=== PATIENT | female | born 1960 | race Caucasian/White ===

== ENCOUNTER → 2019-08-19 09:48 | Outpatient (CLI) | payer BC, SELFPAY ==
--- NOTE | ~2019-08-19 | MM_ITS ---
EXAMINATION: MM screening elly BI w ara HISTORY: Screening mammogram TECHNIQUE: Craniocaudal and mediolateral oblique 3-D tomosynthesis images were obtained and synthetic 2-D images were generated. CAD analysis was submitted and interpreted. COMPARISON: Comparison to multiple prior studies sequentially, with oldest reviewed study dated 2012. BREAST PARENCHYMAL COMPOSITION: There are scattered areas of fibroglandular density. FINDINGS: There are benign calcifications. There is no evidence of suspicious mass, calcification, or architectural distortion to suggest malignancy in either breast. There has been no suspicious interv al change. IMPRESSION: 1. No mammographic evidence of malignancy. 2. Recommend routine screening mammography in one year. BI-RADS Category 2: Benign finding(s). Reviewed, dictated and finalized at location A. 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
== END ==
PROVIDERS: Visit Provider Physician Assistant
DX: Z12.31 Encounter for screening mammogram for malignant neoplasm of breast (principal)
CPT/HCPCS: 77063; 77067

== ENCOUNTER → 2020-10-25 07:02 | Outpatient (CLI) | payer BC, SELFPAY ==
--- NOTE | ~2020-10-25 | MM_ITS ---
EXAMINATION: MM screening elly BI w ara HISTORY: Screening mammogram TECHNIQUE: Craniocaudal and mediolateral oblique 3-D tomosynthesis images were obtained and synthetic 2-D images were generated. CAD analysis was submitted and interpreted. COMPARISON: 08/19/2019, 02/22/2018, 04/06/2016 bilateral digital screening mammogram examinations BREAST PARENCHYMAL COMPOSITION: There are scattered areas of fibroglandular density. FINDINGS: There is no evidence of suspicious mass, calcification, or architectural distortion to sugg est malignancy in either breast. There has been no suspicious interval change. IMPRESSION: 1. No mammographic evidence of malignancy. 2. Recommend routine screening mammography in one year. BI-RADS Category 1: Negative Reviewed, dictated and finalized at location A.
== END ==
PROVIDERS: PCP Family Medicine; Visit Provider Family Medicine
DX: Z12.31 Encounter for screening mammogram for malignant neoplasm of breast (principal)
CPT/HCPCS: 77063; 77067

== ENCOUNTER 2022-01-17 14:04 | Inpatient (IN) | payer BC, SELFPAY ==
--- NOTE | ~2022-01-17 | CT_ITS ---
EXAMINATION: CT LE RT wo con DATE: 01/27/2022 10:32 INDICATION: Right lower leg cellulitis and erythema and swelling. TECHNIQUE: Computed tomography (CT) of the right lower limb from the knee to the foot was performed w ithout intravenous contrast. Automated exposure control and iterative reconstruction technique were e mployed. The dose-length product was 996.12 mGy-cm. COMPARISON: Right tibia and fibula radiographs 01/21/2022 FINDINGS: Bone alignment is normal. No fracture. Right knee demonstrates moderate osteoarthritis of m edial compartment and mild osteoarthritis of lateral and patellofemoral compartments. There is mild p olyarticular osteoarthritis in the foot. There are enthesophytes at the posterior and plantar aspects of calcaneal tuberosity. There is subcutaneous edema in the lower leg and foot. IMPRESSION: 1. No abscess. 2. Polyarticular osteoarthritis. Reviewed, dictated and finalized at location A.
--- NOTE | ~2022-01-17 | XR_ITS ---
EXAMINATION: XR tibia fibula RT 2V DATE: 01/21/2022 08:52 INDICATION: Right lower leg swelling and erythema TECHNIQUE: AP and lateral views of the right lower leg were obtained on overlapping proximal and dist al images. COMPARISON: 01/14/2022 FINDINGS: Bone alignment is normal. No fracture. Mild tricompartmental osteoarthritis at the right knee. No cor tical erosions or periosteal reaction. Moderate-sized Achilles and plantar calcaneal spurs. Diffuse s oft tissue swelling with subcutaneous edema throughout the right lower leg beginning about the knee a nd extending as ankle over the dorsum of the foot. No soft tissue gas or radiopaque foreign bodies. IMPRESSION: 1. Unchanged nonspecific diffuse soft tissue swelling with no acute osseous abnormality or soft tissu e gas. Reviewed, dictated and finalized at location A. IMPRESSION: 1. Unchanged nonspecific diffuse soft tissue swelling with no acute osseous abn ormality or soft tissue gas.
--- NOTE | ~2022-01-17 | XR_ITS ---
EXAM: XR foot RT 2V DATE: 01/21/2022 13:50 HISTORY: swelling, right foot, pain, cellulitis . COMPARISON: None available. FINDINGS: Normal mineralization. No fracture or dislocation. No lytic or blastic lesion. Joint space s are maintained. Plantar and Achilles enthesopathy. No erosion or periosteal change. Diffuse soft ti ssue swelling. IMPRESSION: No acute osseous finding in the right foot. Reviewed, dictated and finalized at location K.
--- NOTE | ~2022-01-17 | US_ITS ---
EXAMINATION: US venous doppler LE RT DATE: 01/17/2022 14:50 INDICATION: swelling, erythema . TECHNIQUE: Grayscale images without and with compression and Doppler images of the right lower extrem ity veins were obtained. COMPARISON: None FINDINGS: The right common femoral vein, profunda (deep) femoral vein, femoral vein, popliteal vein, peroneal v ein, posterior tibial veins, gastrocnemius vein, and greater saphenous vein are patent. Subcutaneous edema present in the area of erythema. IMPRESSION: 1. Patent right lower extremity veins. No evidence of deep venous thrombosis. Reviewed, dictated and finalized at location K.
--- NOTE | ~2022-01-17 | XR_ITS ---
EXAMINATION: XR tibia fibula RT 2V DATE: 01/18/2022 11:35 INDICATION: Swelling and erythema at the distal right lower leg TECHNIQUE: Anteroposterior and lateral views of the right lower leg were obtained. COMPARISON: None. FINDINGS: Alignment is normal. No fracture. Joint spaces are relatively preserved although joint space narrowin g can be underestimated on nonweightbearing imaging. There are small marginal ossified to the inferio r pole of the patella and tiny marginal osteophytes at the medial and lateral compartments as well as at the ankle. No cortical erosions or periosteal reaction. Soft tissue swelling throughout the right lower leg and about the ankle with diffuse subcutaneous edema. No soft tissue gas or radiopaque fore ign bodies. Moderate-sized Achilles and plantar calcaneal spurs. No evident knee or ankle joint effus ion. IMPRESSION: 1. Nonspecific diffuse soft tissue swelling with no acute osseous abnormality, soft tissue gas or rad iopaque foreign body. Reviewed, dictated and finalized at location A. IMPRESSION: 1. Nonspecific diffuse soft tissue swelling with no acute osseous abnormality, soft tissue gas or radiopaque foreign body.
[2022-01-17 14:05] VITALS: BP 145/89; PULSE 87; RESP 16; TEMP 36.1; O2SAT 98
--- NOTE | 2022-01-17 14:20 | ED.SKABFB ---
HPI - Skin/Abscess/Foreign Bdy General Chief complaint: Skin/Abscess/Foreign Body <Miriam Morris PA-C - Last Filed: 01/17/22 19:17> Stated complaint: RLE cellulitis <MIESHA Bryant Last Filed: 01/17/22 19:17> Time Seen by Provider: 01/17/22 14:12 <MIESHA Bryant Last Filed: 01/17/22 19:17> History of Present Illness HPI narrative: Patient is a 61-year-old female here with a history of RA here for evaluation of right lower extremity swelling and pain for the past day and a half. Patient states that her foot has been red for several days, but the pain and swelling began yesterday. She went to [facility] emergency department, and was given oral antibiotics and sent home, told to come back if he gets worse. Unfortunately, the redness and swelling has spread proximally up her calf, behind her knee despite compliance with the cefpodoxime she was prescribed. Denies fevers, chills, nausea, vomiting. <MIESHA Bryant Last Filed: 01/17/22 19:17> Related Data Home medications: Home Medications Medication Instructions Recorded Confirmed etanercept 25 mg/0.5 mL (0.5 mL) 25 mg subcut WEEKLY 07/18/19 02/13/21 subcutaneous syringe (Enbrel) <MIESHA Bryant Last Filed: 01/17/22 19:17> Allergies/Adverse reactions: Allergies Allergy/AdvReac Type Severity Reaction Status Date / Time Penicillins Allergy Unknown Unknown Verified 01/17/22 14:07 <MIESHA Bryant Last Filed: 01/17/22 19:17> Review of Systems Review of Systems: Gen: Denies fevers or chills Eyes: Denies eye pain or visual change ENT: Denies congestion Respiratory: Denies shortness of breath or cough CV: Denies chest pain or palpitations GI: Denies abdominal pain nausea, emesis or diarrhea denies burning, urgency, frequency or hematuria Musculoskeletal: Denies back pain or muscle pain Neuro: Denies numbness, tingling, weakness or focal weakness Skin: Reports redness and swelling to right lower extremity Except as documented, all other systems reviewed and negative <Miriam Morris PA-C - Last Filed: 01/17/22 19:17> [facility] Past Medical History Medical History: Medical History Eczema Rheumatoid arthritis Tinea <Miriam Morris PA-C - Last Filed: 01/17/22 19:17> Social History Social History: Social History Alcohol intake: current Drinks per week: 10 <Miriam Morris PA-C - Last Filed: 01/17/22 19:17> Exam Narrative: APPEARANCE: Well appearing, no pain in distress, well-nourished. Head: Normocephalic and atraumatic. EYES: PERRLA/EOMI, conjunctivae clear NOSE: No nasal drainage EARS: External ear normal in appearance THROAT: Oropharynx is clear. Mucous membranes are moist. NECK: Supple. No adenopathy, no masses. RESPIRATORY: Airway patent, respirations nonlabored. Clear to auscultation bilaterally, no rales, rhonchi, wheezing. CARDIOVASCULAR: Doppler signals to bilateral dp/pt. Regular rate and rhythm without murmurs, rubs, or gallops. ABDOMINAL: Normoactive bowel sounds. Soft, nontender, nondistended. No rebound tenderness or guarding. MUSCULOSKELETAL: Extremities are warm and well-perfused. Moves all extremities well. NEURO: Normal speech. No focal neurologic deficits. SKIN: Large area of erythema and swelling to right lower extremity extending from foot proximally up calf. PSYCHIATRIC: Normal affect/mood. <Miriam Morris PA-C - Last Filed: 01/17/22 19:17> Course SECURITY TECH/PA Physician Supervision For this patient encounter, I reviewed the SECURITY TECH or PA documentation, treatment plan, and medical decision making; <Naila Herrera MD - Last Filed: 01/17/22 19:18> Vital Signs Vital signs: Vital Signs Temperature 97 F L 01/17/22 14:05 Pulse Rate 87 01/17/22 14:05 Respi
[2022-01-17 14:57] LABS: Basophils Percent Auto 0.2 % (0.2-1.2); Hematocrit 39.1 % (37.0-47.0); Hemoglobin 12.8 g/dL (12.0-15.0); Immature Granulocyte Absolute 0.11 K/mm3 (0.00-0.031); Immature Granulocyte Percent A 0.6 % (0-0.5); Lymphocytes Absolute Auto 0.91 K/mm3 (0.9-3.2); Lymphocytes Percent Auto 5.3 % (18.3-44.2); Mean Corpuscular HGB Conc 32.7 g/dl (32-36); Mean Corpuscular Volume 88.5 fl (80-100); Mean Platelet Volume 11.3 fl (7.4-10.4); Monocytes Absolute Auto 0.6 K/mm3 (0.1-0.6); Monocytes Percent Auto 3.5 % (2.6-8.5); Neutrophils Absolute Auto 15.5 K/mm3 (1.3-6.7); Neutrophils Percent Auto 90.4 % (45.5-73.1); Platelet Count Result 213 k/mm3 (150-375); Red Blood Count 4.42 M/mm3 (4.2-5.4); Red Cell Distribution Width 12.9 % (11.5-14.5); White Blood Count 17.1 K/mm3 (4.5-10.0)
--- NOTE | 2022-01-17 14:59 | PC.NURSE ---
right pedal pulse doppled and marked
[2022-01-17 15:08] LABS: Lactic Acid Reflex 1.1 mmol/L (0.7-2.0)
[2022-01-17 15:09] LABS: Alanine Aminotransferase 20 U/L (6-35); Albumin Level 3.8 g/dL (3.5-5.1); Alkaline Phosphatase 72 U/L (38-126); Anion Gap 4 mmol/L (8-16); Aspartate Amino Transferase 19 U/L (14-36); Bilirubin,Total 0.7 mg/dL (0.2-1.3); Blood Urea Nitrogen 20 mg/dL (7-17); Calcium 9.5 mg/dL (8.4-10.2); Carbon Dioxide 27 mmol/L (22-30); Chloride 106 mmol/L (98-107); Estimated CRCL calculation 71 ml/min; Estimated Glomerular Filt Rate > 60; Glucose 156 mg/dL (65-110); Potassium 3.9 mmol/L (3.4-5.0); Sodium 137 mmol/L (137-145)
[2022-01-17 16:45] LABS: SARS-CoV-2 RNA PCR Negative
--- NOTE | 2022-01-17 17:43 | PM.IMHP ---
H&P: HPI History of Present Illness Date/Time: 01/17/22 17:00 Chief Complaint: Right lower extremity cellulitis Narrative: This pleasant 61-year-old female patient who has significant past medical history of rheumatoid arthritis on chronic Enbrel therapy, current psoriasis in fungal infection to bilateral lower extremities presents to the emergency room independently ambulatory with complaints of having right lower extremity cellulitis that has spread from her foot to her calf over the course of the past day and half. Patient endorses that yesterday she had a left knee arthrocentesis and subsequent steroid injection performed at [facility] and she had no symptoms of any leg swelling, erythema or pain prior to. She returned home and upon arriving home later in the day she noted that her right leg seemed to be swollen, and she had a reddened area present that was painful. She return to the emergency room at [facility] yesterday was diagnosed with right lower extremity cellulitis was given antibiotics of cefpodoxime to take at home and discharge. Patient has taken a total of 2 doses of the cefpodoxime, however notes that the swelling and the erythema has spread of from her ankle down onto her foot as well as up to the midcalf despite the medication. Patient endorses that she has a small reddened area in the center of the cellulitic area that is also being treated with terbinafine cream currently as patient has a small fungal infection. It is noted also that on her right foot she has an area of psoriasis and eczema. She has noted that she has been scratching the extremity some lately. She denies any chest pain, dyspnea, fevers, flu-like illness or recent ill contacts. She rates her pain a 9/10. Upon arrival to the emergency room workup was performed. Venous Dopplers were negative for any DVT in the affected extremity, however her white blood cell count is noted to be 17.1 with absolute neutrophils of 15.5, and her metabolic panel is normal. Lactic acid is normal at 1.1. Will obtain a procalcitonin and CRP. Blood cultures x2 are pending. Patient was given a dose Ancef in the ED. it is secondary to patient having a compromised immune system will add vancomycin pending results of blood cultures. Patient has been admitted to hospitalist service at this time for further workup, treatment and management. Review of Systems Review of Systems: All systems reviewed & are unremarkable except as noted in HPI and below PMFSH Past Medical History Medical History Eczema Rheumatoid arthritis Tinea Social History Social History Alcohol intake: current Drinks per week: 10 Meds Home Medications and Allergies Home Medications Medication Instructions Recorded Confirmed Type etanercept 25 mg/0.5 mL (0.5 mL) 25 mg subcut WEEKLY 07/18/19 02/13/21 History subcutaneous syringe (Enbrel) leflunomide 20 mg tablet 20 mg PO DAILY #90 tabs 12/20/19 02/13/21 Rx lysine 1,000 mg tablet 1,000 mg PO DAILY #90 tabs 12/20/19 02/13/21 Rx triamcinolone acetonide 0.1 % 1 applic topical BID #80 grams 07/09/20 02/13/21 Rx topical cream terbinafine HCl 250 mg tablet 250 mg PO DAILY #84 tabs 12/10/21 12/10/21 Rx triamterene 37.5 0.5 tablet PO QAM #30 tabs 12/10/21 12/10/21 Rx mg-hydrochlorothiazide 25 mg tablet (Maxzide-25mg) Allergies Allergy/AdvReac Type Severity Reaction Status Date / Time Penicillins Allergy Unknown Unknown Verified 01/17/22 14:07 Vital Signs Vital Signs - 24 hr 01/17/22 14:05 Temperature 97 F L Pulse Rate 87 Respiratory Rate 16 Blood Pressure 145/89 H Pulse Oximetry 98 H&P: Results Labs Labs: Short CBC 01/17/22 Range/Units 14:51 WBC 17.1 H (4.5-10.0) K/mm3 Hgb 12.8 (12.0-15.0) g/dL Hct 39.1 (37.0-47.0) % Plt Count 213 (150-375) k/mm3 BMP 01/17/22
[2022-01-17 17:54] VITALS: BP 130/82; PULSE 85; RESP 16; O2SAT 98
[2022-01-17 19:48] LABS: Procalcitonin 0.3 ng/mL
[2022-01-17 20:09] LABS: CRP 32.3 mg/dL (<1.0)
[2022-01-17] MEDS: HYDROcodone/acetaminophen (*CRX) 5-325 MG TABLET 1 TAB PO (20:33)
[2022-01-17 21:15] VITALS: BP 134/57; PULSE 82; RESP 16; TEMP 36.5; O2SAT 95
[2022-01-17 22:00] VITALS: BMI 38.7
[2022-01-18 04:53] VITALS: BP 126/48; PULSE 83; RESP 16; TEMP 36.6; O2SAT 98
[2022-01-18 05:12] LABS: Basophils Percent Auto 0.3 % (0.2-1.2); Eosinophils Percent Auto 0.1 % (0-4.4); Hematocrit 39.8 % (37.0-47.0); Hemoglobin 12.6 g/dL (12.0-15.0); Immature Granulocyte Absolute 0.08 K/mm3 (0.00-0.031); Immature Granulocyte Percent A 0.5 % (0-0.5); Lymphocytes Absolute Auto 1.01 K/mm3 (0.9-3.2); Lymphocytes Percent Auto 6.5 % (18.3-44.2); Mean Corpuscular HGB Conc 31.7 g/dl (32-36); Mean Corpuscular Hemoglobin 28.6 pg (26-34); Mean Corpuscular Volume 90.5 fl (80-100); Mean Platelet Volume 11.4 fl (7.4-10.4); Monocytes Absolute Auto 0.9 K/mm3 (0.1-0.6); Monocytes Percent Auto 6.1 % (2.6-8.5); Neutrophils Absolute Auto 13.4 K/mm3 (1.3-6.7); Neutrophils Percent Auto 86.5 % (45.5-73.1); Platelet Count Result 219 k/mm3 (150-375); White Blood Count 15.5 K/mm3 (4.5-10.0)
[2022-01-18 05:27] LABS: Alanine Aminotransferase 17 U/L (6-35); Albumin Level 3.8 g/dL (3.5-5.1); Alkaline Phosphatase 70 U/L (38-126); Anion Gap 9 mmol/L (8-16); Aspartate Amino Transferase 17 U/L (14-36); Bilirubin,Total 0.5 mg/dL (0.2-1.3); Blood Urea Nitrogen 15 mg/dL (7-17); Calcium 9.3 mg/dL (8.4-10.2); Carbon Dioxide 27 mmol/L (22-30); Chloride 102 mmol/L (98-107); Estimated CRCL calculation 81 ml/min; Estimated Glomerular Filt Rate > 60; Glucose 99 mg/dL (65-110); Magnesium 2.1 mg/dL (1.6-2.3); Sodium 138 mmol/L (137-145)
[2022-01-18] MEDS: ENOXAPARIN 40 MG/0.4 ML SYRINGE SUB-Q (08:10)
[2022-01-18] MEDS: HYDROcodone/acetaminophen (*CRX) 5-325 MG TABLET 1 TAB PO ×3 (09:16→23:51)
--- NOTE | 2022-01-18 10:56 | PM.IMPN ---
Progress Note: A&P Assessment and Plan (1) Cellulitis: Qualifiers: Site of cellulitis: extremity Site of cellulitis of extremity: lower extremity Laterality: right Qualified Code(s): L03.115 - Cellulitis of right lower limb Code(s): L03.90 - Cellulitis, unspecified Status: Acute Assessment and Plan: patient given Ancef in the ED. -Continue Ancef, but increase to 2 grams Q8 hours. -Vancomycin IV pharmacy to dose added. Given compromised immune system from Enbrel and leflunomide -Right tib/fib negative for soft tissue gas, foreign body or osseous abnormality. -elevated white blood cell count with elevated absolute neutrophils -lactic acid normal, procalcitonin 0.3, and CRP elevated 32 (may be chronically elevated due to RA). -blood cultures pending. -venous Dopplers negative for DVT. No documented abscess or fluid collection noted. -Worsening symptoms on outpatient cefpodoxime x24 hours. -Continue p.r.n. pain med -p.r.n. antiemetics -monitor labs and vitals -Elevate RLE to help with edema. (2) Lower extremity edema: Code(s): R60.0 - Localized edema Status: Acute Assessment and Plan: -venous Dopplers negative for DVT -most likely secondary to cellulitis -elevate legs in bed -Continue triamterene/hydrochlorothiazide for her chronic edema. Monitor BP on medication. (3) Tinea pedis of both feet: Code(s): B35.3 - Tinea pedis Status: Acute Assessment and Plan: -patient has ordered terbinafine cream for small area on her right lower extremity approximately dime-sized. -Resume oral terbinafine. (4) Eczema: Code(s): L30.9 - Dermatitis, unspecified Status: Acute Assessment and Plan: -patient with steroid shot to the left knee intra-articularly 24 hours prior to admission, however patient also uses steroid cream for eczema and psoriasis noted to bilateral lower extremities. -Verify patient's steroid cream, then resume (5) Rheumatoid arthritis: Code(s): M06.9 - Rheumatoid arthritis, unspecified Status: Chronic Assessment and Plan: -chronic history. Patient doses with Enbrel as well as leflunomide for management. -hold leflunomide d/t acute infection. Plan CODE STATUS: FULL CODE Disposition: home when medically stable. Time Spent With Patient Time with patient: 15 - 25 minutes Subjective Date/time seen: 01/18/22 10:56 Interval history: Patient is a 61 yo female with medical history of RA on DMARDs who presented to the ED for evaluation of RLE cellulitis that failed outpatient antibiotics. She does not think her right leg is improved today. It is still red, swollen and the skin is itching. She is concerned that her toe fungal infection is the contributing. She is also concerned that the steroid injection to her left knee contributed to RLE cellulitis. She denies acute injury, but does have old psoriasis lesions to her right leg. Review of Systems Review of Systems: All systems reviewed & are unremarkable except as noted in HPI and below Exam Narrative: General: No distress. Well-developed adult female sitting up in bed. Non-toxic appearing. No oxygen. Mental Status/Psych: AAOx4. Clear speech. Pleasant and cooperative. Neutral mood and affect. Skin: Fair, warm, dry. RLE and pedal with 3+ edema, hot to touch, moderate erythema superior to malleolus and approximately 4 in from patella. Very tender to palpitation. HEENT: Normocephalic. Sclera non-icteric. Pupils equal and round. Oral mucosa moist. Neck: No JVD. Heart: S1 and S2 regular rate and rhythm. No murmurs, gallops, or rubs auscultated. Chest: Respirations even and unlabored. Lung sounds are clear to auscultation bilaterally. No wheezes, rhonchi, or rales. Abdomen: Soft, round and nontender to palpation. No CVA tenderness.?No guarding. Bowel sounds present in all 4 quadrants. Extremities:? Grossly normal ROM all extremities. Rock
[2022-01-18] MEDS: ceFAZolin 2 GM/D5W 50 ML 2 GM/50 ML BAG IVPB ×2 (14:31→23:39)
[2022-01-18 15:33] VITALS: BP 126/56; PULSE 80; RESP 20; TEMP 36.3; O2SAT 98
[2022-01-18 20:00] VITALS: PULSE 84; RESP 18; O2SAT 97
[2022-01-18 21:40] VITALS: BP 133/61; PULSE 84; RESP 18; TEMP 36.4; O2SAT 97
[2022-01-19] MEDS: ceFAZolin 2 GM/D5W 50 ML 2 GM/50 ML BAG IVPB ×3 (06:12→21:48)
[2022-01-19 06:27] VITALS: BP 130/66; PULSE 89; RESP 20; TEMP 37.5; O2SAT 94
[2022-01-19 07:39] LABS: Basophils Absolute Auto 0.1 K/mm3 (0.0-0.1); Basophils Percent Auto 0.5 % (0.2-1.2); Eosinophils Absolute Auto 0.1 K/mm3 (0-0.3); Eosinophils Percent Auto 0.8 % (0-4.4); Hematocrit 35.8 % (37.0-47.0); Hemoglobin 11.9 g/dL (12.0-15.0); Immature Granulocyte Absolute 0.06 K/mm3 (0.00-0.031); Immature Granulocyte Percent A 0.6 % (0-0.5); Lymphocytes Absolute Auto 0.89 K/mm3 (0.9-3.2); Lymphocytes Percent Auto 8.7 % (18.3-44.2); Mean Corpuscular HGB Conc 33.2 g/dl (32-36); Mean Corpuscular Hemoglobin 29.3 pg (26-34); Mean Corpuscular Volume 88.2 fl (80-100); Mean Platelet Volume 10.6 fl (7.4-10.4); Monocytes Absolute Auto 1.2 K/mm3 (0.1-0.6); Monocytes Percent Auto 11.6 % (2.6-8.5); Neutrophils Percent Auto 77.8 % (45.5-73.1); Platelet Count Result 207 k/mm3 (150-375); Red Blood Count 4.06 M/mm3 (4.2-5.4); Red Cell Distribution Width 12.8 % (11.5-14.5); White Blood Count 10.3 K/mm3 (4.5-10.0)
[2022-01-19 07:59] LABS: Estimated CRCL calculation 93 ml/min; Estimated Glomerular Filt Rate > 60
[2022-01-19 08:05] LABS: Vancomycin Trough 8.9 ug/mL (10.0-20.0)
[2022-01-19] MEDS: ENOXAPARIN 40 MG/0.4 ML SYRINGE SUB-Q (09:27)
[2022-01-19] MEDS: TERBINAFINE HCL 250 MG TABLET PO (09:28)
[2022-01-19] MEDS: TRIAMTERENE 37.5 MG/HCTZ 25 MG (MAXZIDE) TABLET 0.5 TAB PO (09:28)
[2022-01-19 10:23] VITALS: PULSE 82; O2SAT 96
--- NOTE | 2022-01-19 10:30 | PM.IMPN ---
Progress Note: A&P Assessment and Plan (1) Cellulitis: Qualifiers: Laterality: right Site of cellulitis: extremity Site of cellulitis of extremity: lower extremity Qualified Code(s): L03.115 - Cellulitis of right lower limb Code(s): L03.90 - Cellulitis, unspecified Status: Acute Assessment and Plan: patient given Ancef in the ED. -Continue Ancef 2 grams Q8 hours. Antibiotic day 2. -Vancomycin IV pharmacy to dose added. Given compromised immune system from Enbrel and leflunomide will continue for another 24 hours at least. Discussed with ID clinical pharmacist. -Right tib/fib negative for soft tissue gas, foreign body or osseous abnormality. -elevated white blood cell count with elevated absolute neutrophils that is trending down with some clinical improvement. -lactic acid normal, procalcitonin 0.3, and CRP elevated 32 (may be chronically elevated due to RA). -blood cultures negative to date. -venous Dopplers negative for DVT. No documented abscess or fluid collection noted. -Worsening symptoms on outpatient cefpodoxime x24 hours. -Increase hydrocodone/APAP to 7.5/325 mg PO Q4 hours PRN -monitor labs and vitals -Elevate RLE to help with edema. (2) Lower extremity edema: Code(s): R60.0 - Localized edema Status: Acute Assessment and Plan: -venous Dopplers negative for DVT -most likely secondary to cellulitis -elevate legs in bed -Continue triamterene/hydrochlorothiazide for her chronic edema. Monitor BP on medication. (3) Tinea pedis of both feet: Code(s): B35.3 - Tinea pedis Status: Acute Assessment and Plan: -patient has ordered terbinafine cream for small area on her right lower extremity approximately dime-sized. -Resume oral terbinafine. (4) Eczema: Code(s): L30.9 - Dermatitis, unspecified Status: Acute Assessment and Plan: -patient with steroid shot to the left knee intra-articularly 24 hours prior to admission, however patient also uses steroid cream for eczema and psoriasis noted to bilateral lower extremities. -Verify patient's steroid cream, then resume (5) Rheumatoid arthritis: Code(s): M06.9 - Rheumatoid arthritis, unspecified Status: Chronic Assessment and Plan: -chronic history. Patient doses with Enbrel as well as leflunomide for management. -hold leflunomide d/t acute infection. Plan CODE STATUS: FULL CODE Disposition: home when medically stable. Time Spent With Patient Time with patient: 15 - 25 minutes Subjective Date/time seen: 01/19/22 10:30 Interval history: Patient is a 61 yo female with medical history of RA on DMARDs who presented to the ED for evaluation of RLE cellulitis that failed outpatient antibiotics. She still has pain to her right leg, especially with ambulating. The pain medication is minimally helpful. She thinks there is less redness to her foot and ankle, but it is still swollen and red. Review of Systems Review of Systems: All systems reviewed & are unremarkable except as noted in HPI and below Exam Narrative: General: No distress. Non-toxic appearing. No oxygen. Mental Status/Psych: AAOx4. Clear speech. Pleasant and cooperative. Neutral mood and affect. Skin: Fair, warm, dry. RLE and pedal with 3+ edema, hot to touch mid-calf, moderate erythema within marked borders, mild recession from markings. Very tender to palpitation. HEENT: Sclera non-icteric. Pupils equal and round. Oral mucosa moist. Neck: No JVD. Heart: S1 and S2 regular rate and rhythm. No murmurs, gallops, or rubs auscultated. Chest: Respirations even and unlabored. Lung sounds are clear to auscultation bilaterally. No wheezes, rhonchi, or rales. Abdomen: Soft, round and nontender to palpation. Bowel sounds present in all 4 quadrants. Extremities:? Grossly normal ROM all extremities. Dorsalis pedis pulses +2 bilaterally. Neurological: No focal deficits. Obje
[2022-01-19 14:42] VITALS: BP 147/68; PULSE 95; RESP 16; TEMP 36.1; O2SAT 100
[2022-01-19 20:40] VITALS: BP 133/54; PULSE 88; RESP 20; TEMP 36.6; O2SAT 96
[2022-01-20] MEDS: HYDROcodone/acetaminophen (*CRX) 7.5-325 MG TABLET 1 TAB PO ×3 (00:08→21:15)
[2022-01-20 03:44] VITALS: BP 136/70; PULSE 84; RESP 16; TEMP 36.3; O2SAT 93
[2022-01-20 05:31] LABS: Basophils Absolute Auto 0.1 K/mm3 (0.0-0.1); Basophils Percent Auto 0.6 % (0.2-1.2); Eosinophils Absolute Auto 0.2 K/mm3 (0-0.3); Eosinophils Percent Auto 1.7 % (0-4.4); Hematocrit 38.9 % (37.0-47.0); Hemoglobin 12.2 g/dL (12.0-15.0); Immature Granulocyte Absolute 0.04 K/mm3 (0.00-0.031); Immature Granulocyte Percent A 0.4 % (0-0.5); Lymphocytes Absolute Auto 1.06 K/mm3 (0.9-3.2); Lymphocytes Percent Auto 11.8 % (18.3-44.2); Mean Corpuscular HGB Conc 31.4 g/dl (32-36); Mean Corpuscular Hemoglobin 28.1 pg (26-34); Mean Corpuscular Volume 89.6 fl (80-100); Mean Platelet Volume 10.6 fl (7.4-10.4); Monocytes Absolute Auto 1.3 K/mm3 (0.1-0.6); Monocytes Percent Auto 14.7 % (2.6-8.5); Neutrophils Absolute Auto 6.4 K/mm3 (1.3-6.7); Neutrophils Percent Auto 70.8 % (45.5-73.1); Platelet Count Result 240 k/mm3 (150-375); Red Blood Count 4.34 M/mm3 (4.2-5.4); Red Cell Distribution Width 12.6 % (11.5-14.5)
[2022-01-20] MEDS: ceFAZolin 2 GM/D5W 50 ML 2 GM/50 ML BAG IVPB ×3 (06:19→21:14)
--- NOTE | 2022-01-20 09:56 | PM.IMPN ---
Progress Note: A&P Assessment and Plan (1) Cellulitis: Qualifiers: Laterality: right Site of cellulitis: extremity Site of cellulitis of extremity: lower extremity Qualified Code(s): L03.115 - Cellulitis of right lower limb Code(s): L03.90 - Cellulitis, unspecified Status: Acute Assessment and Plan: Worsening symptoms on outpatient cefpodoxime x24 hours. WBC 17.1. Afebrile. Elevate RLE to help with edema. 01/17/22 patient given Ancef in the ED. Continued on Vancomycin IV and Ancef 1 gram Q8 hours. Venous Dopplers negative for DVT. No documented abscess or fluid collection noted. 01/18/22 minimal improvement. Increased Ancef 2 grams Q8 hours. Continued on Vancomycin IV pharmacy to dose. Right tib/fib negative for soft tissue gas, foreign body or osseous abnormality. 01/19/22 Vanc trough 8.9 and Vancomycin dose increased 1.75 grams Q12 hours. Ancef 2 grams continued. Less redness noted. Pain is still present and hydrocodone/APAP to 7.5/325 mg PO Q4 hours PRN. Discussed case and antibiotic coverage with ID clinical pharmacist who agrees with antibiotic regimen. 01/20/22 Continued slow improvement in erythema and edema. Pain mildly improving. Will continue Vancomycin IV x 24 more hours and Ancef 2 grams Q8 hours. Transition to oral doxycycline 100 mg BID to complete 10-day antibiotic course when improved and ready for discharge. Blood cultures negative to date. (2) Lower extremity edema: Code(s): R60.0 - Localized edema Status: Acute Assessment and Plan: -venous Dopplers negative for DVT -most likely secondary to cellulitis -elevate legs in bed -Continue triamterene/hydrochlorothiazide for her chronic edema. Monitor BP on medication. 01/20/22 Appears improved. (3) Tinea pedis of both feet: Code(s): B35.3 - Tinea pedis Status: Acute Assessment and Plan: patient has ordered terbinafine cream for small area on her right lower extremity approximately dime-sized outpatient. 01/18/22 Resume oral terbinafine. (4) Eczema: Code(s): L30.9 - Dermatitis, unspecified Status: Acute Assessment and Plan: -patient with steroid shot to the left knee intra-articularly 24 hours prior to admission, however patient also uses steroid cream for eczema and psoriasis noted to bilateral lower extremities. -Continue triamcinolone cream for eczema. (5) Rheumatoid arthritis: Code(s): M06.9 - Rheumatoid arthritis, unspecified Status: Chronic Assessment and Plan: chronic history. Patient doses with Enbrel as well as leflunomide for management. -hold leflunomide d/t acute infection. Enbrel injections weekly and held. Plan CODE STATUS: FULL CODE Disposition: Home. DC when cellulitis and pain with significant improvement and patient stable on oral antibiotics. Time Spent With Patient Time with patient: 15 - 25 minutes Subjective Date/time seen: 01/20/22 09:56 Interval history: Patient is a 61 yo female with medical history of RA on DMARDs who presented to the ED for evaluation of RLE cellulitis that failed outpatient antibiotics. She thinks her pain is slightly improved, but the skin is itching. She also believes her leg is 10-15% better than yesterday. The redness has resolved in some areas and there is some wrinkling of the skin. She has been elevating her leg. Review of Systems Review of Systems: All systems reviewed & are unremarkable except as noted in HPI and below Exam Narrative: General: No distress. Non-toxic appearing. Mental Status/Psych: AAOx4. Clear speech. Pleasant and cooperative. Neutral mood and affect. Skin: Fair, warm, dry. RLE and pedal with 3+ edema, slight skin wrinkling noted, warm to touch mid-calf, moderate erythema with some recession from markings. Tender to palpitation. HEENT: Sclera non-icteric. Pupils equal and round. Oral mucosa moist. Neck: No JVD. Heart: S1 and S2 regular rate
[2022-01-20 10:11] VITALS: BP 134/64; PULSE 89; RESP 18; O2SAT 97
[2022-01-20] MEDS: TERBINAFINE HCL 250 MG TABLET PO (10:13)
[2022-01-20] MEDS: TRIAMTERENE 37.5 MG/HCTZ 25 MG (MAXZIDE) TABLET 0.5 TAB PO (10:14)
[2022-01-20] MEDS: ENOXAPARIN 40 MG/0.4 ML SYRINGE SUB-Q (10:14)
[2022-01-20 14:00] VITALS: BP 120/66; PULSE 85; RESP 16; TEMP 36.8; O2SAT 100
[2022-01-20] MEDS: DOCOSANOL 10% CREAM 2 GM 1 APPLIC TOPICAL ×3 (14:19→21:14)
[2022-01-20 19:41] VITALS: BP 126/60; PULSE 87; RESP 18; TEMP 36.1; O2SAT 96
[2022-01-20 22:01] LABS: Vancomycin Trough 10.7 ug/mL (10.0-20.0)
[2022-01-21] MEDS: HYDROcodone/acetaminophen (*CRX) 7.5-325 MG TABLET 1 TAB PO ×3 (01:31→17:57)
[2022-01-21 04:38] VITALS: BP 126/62; PULSE 78; RESP 18; TEMP 36.1; O2SAT 97
[2022-01-21 05:06] LABS: Basophils Absolute Auto 0.1 K/mm3 (0.0-0.1); Basophils Percent Auto 0.5 % (0.2-1.2); Eosinophils Absolute Auto 0.1 K/mm3 (0-0.3); Eosinophils Percent Auto 0.8 % (0-4.4); Hematocrit 38.4 % (37.0-47.0); Immature Granulocyte Absolute 0.14 K/mm3 (0.00-0.031); Immature Granulocyte Percent A 0.9 % (0-0.5); Lymphocytes Percent Auto 5.8 % (18.3-44.2); Mean Corpuscular HGB Conc 31.3 g/dl (32-36); Mean Corpuscular Hemoglobin 28.3 pg (26-34); Mean Corpuscular Volume 90.6 fl (80-100); Mean Platelet Volume 10.3 fl (7.4-10.4); Monocytes Absolute Auto 1.7 K/mm3 (0.1-0.6); Monocytes Percent Auto 11.2 % (2.6-8.5); Neutrophils Absolute Auto 12.6 K/mm3 (1.3-6.7); Neutrophils Percent Auto 80.8 % (45.5-73.1); Platelet Count Result 274 k/mm3 (150-375); Red Blood Count 4.24 M/mm3 (4.2-5.4); Red Cell Distribution Width 12.6 % (11.5-14.5); White Blood Count 15.6 K/mm3 (4.5-10.0)
[2022-01-21 05:24] LABS: Anion Gap 6 mmol/L (8-16); Blood Urea Nitrogen 12 mg/dL (7-17); Calcium 9.2 mg/dL (8.4-10.2); Carbon Dioxide 31 mmol/L (22-30); Chloride 96 mmol/L (98-107); Estimated CRCL calculation 81 ml/min; Estimated Glomerular Filt Rate > 60; Glucose 134 mg/dL (65-110); Potassium 4.3 mmol/L (3.4-5.0); Sodium 133 mmol/L (137-145)
[2022-01-21] MEDS: ceFAZolin 2 GM/D5W 50 ML 2 GM/50 ML BAG IVPB ×3 (06:47→21:27)
--- NOTE | 2022-01-21 08:12 | PM.IMPN ---
Progress Note: A&P Assessment and Plan (1) Cellulitis: Qualifiers: Laterality: right Site of cellulitis: extremity Site of cellulitis of extremity: lower extremity Qualified Code(s): L03.115 - Cellulitis of right lower limb Code(s): L03.90 - Cellulitis, unspecified Status: Acute Assessment and Plan: Worsening symptoms on outpatient cefpodoxime x24 hours. WBC 17.1. Afebrile. Elevate RLE to help with edema. 01/17/22 patient given Ancef in the ED. Continued on Vancomycin IV and Ancef 1 gram Q8 hours. Venous Dopplers negative for DVT. No documented abscess or fluid collection noted. 01/18/22 minimal improvement. Increased Ancef 2 grams Q8 hours. Continued on Vancomycin IV pharmacy to dose. Right tib/fib negative for soft tissue gas, foreign body or osseous abnormality. 01/19/22 Vanc trough 8.9 and Vancomycin dose increased 1.75 grams Q12 hours. Ancef 2 grams continued. Less redness noted. Pain is still present and hydrocodone/APAP to 7.5/325 mg PO Q4 hours PRN. Discussed case and antibiotic coverage with ID clinical pharmacist who agrees with antibiotic regimen. 01/20/22 Continued slow improvement in erythema and edema. Pain mildly improving. Will continue Vancomycin IV x 24 more hours and Ancef 2 grams Q8 hours. Transition to oral doxycycline 100 mg BID to complete 10-day antibiotic course when improved and ready for discharge. Blood cultures negative to date. 01/21/2022 Continue the patient's IV antibiotics, the PC increased although she did have a steroid injection of the left knee approximately 4 days ago which may contribute to leukocytosis. Patient complains of worsening pain and swelling, RN at bedside stated appears the same as yesterday. Patient requesting for IV narcotics and oral medications. Obtain repeat x-ray of the foot and tib-fib. Consult Wound Care (2) Lower extremity edema: Code(s): R60.0 - Localized edema Status: Acute Assessment and Plan: -venous Dopplers negative for DVT -most likely secondary to cellulitis -elevate legs in bed -Continue triamterene/hydrochlorothiazide for her chronic edema. Monitor BP on medication. 01/20/22 Appears improved. As above (3) Tinea pedis of both feet: Code(s): B35.3 - Tinea pedis Status: Acute Assessment and Plan: patient has ordered terbinafine cream for small area on her right lower extremity approximately dime-sized outpatient. 01/18/22 Resume oral terbinafine. As above (4) Eczema: Code(s): L30.9 - Dermatitis, unspecified Status: Acute Assessment and Plan: -patient with steroid shot to the left knee intra-articularly 24 hours prior to admission, however patient also uses steroid cream for eczema and psoriasis noted to bilateral lower extremities. -Continue triamcinolone cream for eczema. As above (5) Rheumatoid arthritis: Code(s): M06.9 - Rheumatoid arthritis, unspecified Status: Chronic Assessment and Plan: chronic history. Patient doses with Enbrel as well as leflunomide for management. -hold leflunomide d/t acute infection. Enbrel injections weekly and held. Plan CODE STATUS: FULL CODE Disposition: Home. DC when cellulitis and pain with significant improvement and patient stable on oral antibiotics. Subjective Date/time seen: 01/21/22 08:12 Patient was tearful this morning at bedside. Her WBC did slightly increase to 15. Patient did report receiving a steroid injection approximately 4 days ago in her left knee as well as fluid removed. Patient reported the fluid appeared clear and yellow. Non purulence. However the patient's right lower extremity has significant swelling, erythema and warmth. No open wounds, how her posture also is noted to the lower extremity. Consult Wound Care for further evaluation. Review of Systems Review of Systems: All systems reviewed & are unremarkable except as noted in HPI and below Exam Narrative: General
[2022-01-21 09:04] LABS: Lactic Acid Reflex 1.5 mmol/L (0.7-2.0)
[2022-01-21] MEDS: TRIAMTERENE 37.5 MG/HCTZ 25 MG (MAXZIDE) TABLET 0.5 TAB PO (09:09)
[2022-01-21] MEDS: TERBINAFINE HCL 250 MG TABLET PO (09:10)
[2022-01-21] MEDS: ENOXAPARIN 40 MG/0.4 ML SYRINGE SUB-Q (09:10)
[2022-01-21 09:31] LABS: CRP 22.9 mg/dL (<1.0)
[2022-01-21 09:39] LABS: Erythrocyte Sedimentation Rate 47 mm/hr (0-20)
[2022-01-21 10:49] VITALS: O2SAT 97
[2022-01-21] MEDS: DOCOSANOL 10% CREAM 2 GM 1 APPLIC TOPICAL ×4 (11:56→21:27)
[2022-01-21] MEDS: MORPHINE SULFATE (*CRX) 4 MG/ML INJ IV PUSH (11:57)
[2022-01-21 14:00] VITALS: BP 148/81; PULSE 85; RESP 18; TEMP 36.4; O2SAT 93
[2022-01-21 19:30] VITALS: BP 120/59; PULSE 84; RESP 18; TEMP 36.6; O2SAT 97
[2022-01-22] MEDS: HYDROcodone/acetaminophen (*CRX) 7.5-325 MG TABLET 1 TAB PO ×5 (00:53→22:24)
[2022-01-22 04:02] VITALS: BP 124/62; PULSE 87; RESP 18; TEMP 36.6; O2SAT 99
[2022-01-22 05:44] LABS: Basophils Absolute Auto 0.1 K/mm3 (0.0-0.1); Basophils Percent Auto 0.4 % (0.2-1.2); Eosinophils Absolute Auto 0.1 K/mm3 (0-0.3); Eosinophils Percent Auto 0.3 % (0-4.4); Hematocrit 36.3 % (37.0-47.0); Hemoglobin 12.2 g/dL (12.0-15.0); Immature Granulocyte Percent A 1.9 % (0-0.5); Lymphocytes Absolute Auto 1.43 K/mm3 (0.9-3.2); Lymphocytes Percent Auto 6.9 % (18.3-44.2); Mean Corpuscular HGB Conc 33.6 g/dl (32-36); Mean Corpuscular Hemoglobin 29.3 pg (26-34); Mean Corpuscular Volume 87.3 fl (80-100); Mean Platelet Volume 10.6 fl (7.4-10.4); Monocytes Percent Auto 9.5 % (2.6-8.5); Neutrophils Absolute Auto 16.9 K/mm3 (1.3-6.7); Platelet Count Result 294 k/mm3 (150-375); Red Blood Count 4.16 M/mm3 (4.2-5.4); Red Cell Distribution Width 12.2 % (11.5-14.5); White Blood Count 20.8 K/mm3 (4.5-10.0)
[2022-01-22] MEDS: ceFAZolin 2 GM/D5W 50 ML 2 GM/50 ML BAG IVPB (06:07)
[2022-01-22 06:12] LABS: Alanine Aminotransferase 14 U/L (6-35); Albumin Level 3.3 g/dL (3.5-5.1); Alkaline Phosphatase 106 U/L (38-126); Anion Gap 6 mmol/L (8-16); Aspartate Amino Transferase 19 U/L (14-36); Bilirubin,Total 0.6 mg/dL (0.2-1.3); Blood Urea Nitrogen 10 mg/dL (7-17); Calcium 9.3 mg/dL (8.4-10.2); Carbon Dioxide 32 mmol/L (22-30); Chloride 94 mmol/L (98-107); Estimated CRCL calculation 93 ml/min; Estimated Glomerular Filt Rate > 60; Glucose 126 mg/dL (65-110); Potassium 3.9 mmol/L (3.4-5.0); Sodium 132 mmol/L (137-145)
--- NOTE | 2022-01-22 06:54 | PM.IMPN ---
Progress Note: A&P Assessment and Plan (1) Cellulitis: Qualifiers: Laterality: right Site of cellulitis: extremity Site of cellulitis of extremity: lower extremity Qualified Code(s): L03.115 - Cellulitis of right lower limb Code(s): L03.90 - Cellulitis, unspecified Status: Acute Assessment and Plan: Worsening symptoms on outpatient cefpodoxime x24 hours. WBC 17.1. Afebrile. Elevate RLE to help with edema. 01/17/22 patient given Ancef in the ED. Continued on Vancomycin IV and Ancef 1 gram Q8 hours. Venous Dopplers negative for DVT. No documented abscess or fluid collection noted. 01/18/22 minimal improvement. Increased Ancef 2 grams Q8 hours. Continued on Vancomycin IV pharmacy to dose. Right tib/fib negative for soft tissue gas, foreign body or osseous abnormality. 01/19/22 Vanc trough 8.9 and Vancomycin dose increased 1.75 grams Q12 hours. Ancef 2 grams continued. Less redness noted. Pain is still present and hydrocodone/APAP to 7.5/325 mg PO Q4 hours PRN. Discussed case and antibiotic coverage with ID clinical pharmacist who agrees with antibiotic regimen. 01/20/22 Continued slow improvement in erythema and edema. Pain mildly improving. Will continue Vancomycin IV x 24 more hours and Ancef 2 grams Q8 hours. Transition to oral doxycycline 100 mg BID to complete 10-day antibiotic course when improved and ready for discharge. Blood cultures negative to date. 01/21/2022 Continue the patient's IV antibiotics, the PC increased although she did have a steroid injection of the left knee approximately 4 days ago which may contribute to leukocytosis. Patient complains of worsening pain and swelling, RN at bedside stated appears the same as yesterday. Patient requesting for IV narcotics and oral medications. Obtain repeat x-ray of the foot and tib-fib. Consult Wound Care 01/22/2022 patient continues on IV antibiotics. She does have an increasing WBC therefore the throw myself was added although this may be contributory to the cortisone injection she received for left knee approximately 5 days ago. Patient does complain of pain however the swelling and erythema has decreased since yesterday. Repeat imaging appear WNL. Wound Care evaluated the patient obtained samples from pustules risk found on the right lower extremity, pending reports. (2) Lower extremity edema: Code(s): R60.0 - Localized edema Status: Acute Assessment and Plan: -venous Dopplers negative for DVT -most likely secondary to cellulitis -elevate legs in bed -Continue triamterene/hydrochlorothiazide for her chronic edema. Monitor BP on medication. 01/20/22 Appears improved. As above (3) Tinea pedis of both feet: Code(s): B35.3 - Tinea pedis Status: Acute Assessment and Plan: patient has ordered terbinafine cream for small area on her right lower extremity approximately dime-sized outpatient. 01/18/22 Resume oral terbinafine. As above (4) Eczema: Code(s): L30.9 - Dermatitis, unspecified Status: Acute Assessment and Plan: -patient with steroid shot to the left knee intra-articularly 24 hours prior to admission, however patient also uses steroid cream for eczema and psoriasis noted to bilateral lower extremities. -Continue triamcinolone cream for eczema. As above (5) Rheumatoid arthritis: Code(s): M06.9 - Rheumatoid arthritis, unspecified Status: Chronic Assessment and Plan: chronic history. Patient doses with Enbrel as well as leflunomide for management. -hold leflunomide d/t acute infection. Enbrel injections weekly and held. Plan CODE STATUS: FULL CODE Disposition: Home. DC when cellulitis and pain with significant improvement and patient stable on oral antibiotics. Subjective Date/time seen: 01/22/22 06:54 patient's lower extremity does appear slightly improved. She denies any known injury to the lower extremity. However did add azithromycin on
[2022-01-22] MEDS: DOCOSANOL 10% CREAM 2 GM 1 APPLIC TOPICAL ×5 (08:56→22:21)
[2022-01-22] MEDS: ENOXAPARIN 40 MG/0.4 ML SYRINGE SUB-Q (08:56)
[2022-01-22] MEDS: TERBINAFINE HCL 250 MG TABLET PO (08:57)
[2022-01-22] MEDS: TRIAMTERENE 37.5 MG/HCTZ 25 MG (MAXZIDE) TABLET 0.5 TAB PO (08:57)
[2022-01-22 14:00] VITALS: BP 105/75; PULSE 88; RESP 17; TEMP 35.8; O2SAT 98
[2022-01-22] MEDS: cefTRIAXone 2 GM in SODIUM CHLORIDE 0.9% IV 100 ML 200 ML IVPB (15:25)
[2022-01-22 15:45] LABS: Hematocrit 38.1 % (37.0-47.0); Mean Corpuscular HGB Conc 31.5 g/dl (32-36); Mean Corpuscular Hemoglobin 28.5 pg (26-34); Mean Corpuscular Volume 90.5 fl (80-100); Mean Platelet Volume 9.8 fl (7.4-10.4); Platelet Count Result 294 k/mm3 (150-375); Red Blood Count 4.21 M/mm3 (4.2-5.4); Red Cell Distribution Width 12.4 % (11.5-14.5); White Blood Count 18.7 K/mm3 (4.5-10.0)
[2022-01-22 17:22] VITALS: O2SAT 97
[2022-01-22 18:12] LABS: CRP 38.8 mg/dL (<1.0)
[2022-01-22 20:42] VITALS: BP 140/63; PULSE 94; RESP 16; TEMP 36.3; O2SAT 97
[2022-01-22 21:53] LABS: Vancomycin Trough 16.1 ug/mL (10.0-20.0)
[2022-01-23] MEDS: cefTRIAXone 2 GM in SODIUM CHLORIDE 0.9% IV 100 ML 200 ML IVPB ×2 (02:40→13:04)
[2022-01-23] MEDS: HYDROcodone/acetaminophen (*CRX) 7.5-325 MG TABLET 1 TAB PO ×2 (02:51→21:38)
[2022-01-23 05:17] LABS: Basophils Absolute Auto 0.1 K/mm3 (0.0-0.1); Basophils Percent Auto 0.5 % (0.2-1.2); Eosinophils Absolute Auto 0.2 K/mm3 (0-0.3); Eosinophils Percent Auto 1.2 % (0-4.4); Hematocrit 33.3 % (37.0-47.0); Immature Granulocyte Absolute 0.66 K/mm3 (0.00-0.031); Immature Granulocyte Percent A 3.7 % (0-0.5); Lymphocytes Absolute Auto 0.98 K/mm3 (0.9-3.2); Lymphocytes Percent Auto 5.5 % (18.3-44.2); Mean Corpuscular Hemoglobin 29.4 pg (26-34); Monocytes Absolute Auto 1.5 K/mm3 (0.1-0.6); Monocytes Percent Auto 8.2 % (2.6-8.5); Neutrophils Absolute Auto 14.4 K/mm3 (1.3-6.7); Neutrophils Percent Auto 80.9 % (45.5-73.1); Platelet Count Result 310 k/mm3 (150-375); Red Blood Count 3.74 M/mm3 (4.2-5.4); Red Cell Distribution Width 12.3 % (11.5-14.5); White Blood Count 17.8 K/mm3 (4.5-10.0)
[2022-01-23 05:30] VITALS: BP 118/56; PULSE 82; RESP 20; TEMP 36.4; O2SAT 94
[2022-01-23 05:35] LABS: Alanine Aminotransferase 18 U/L (6-35); Albumin Level 3.1 g/dL (3.5-5.1); Alkaline Phosphatase 115 U/L (38-126); Anion Gap 7 mmol/L (8-16); Aspartate Amino Transferase 23 U/L (14-36); Bilirubin,Total 0.3 mg/dL (0.2-1.3); Blood Urea Nitrogen 16 mg/dL (7-17); Calcium 8.8 mg/dL (8.4-10.2); Carbon Dioxide 30 mmol/L (22-30); Chloride 93 mmol/L (98-107); Estimated CRCL calculation 64 ml/min; Estimated Glomerular Filt Rate > 60; Glucose 171 mg/dL (65-110); Potassium 3.8 mmol/L (3.4-5.0); Sodium 130 mmol/L (137-145)
--- NOTE | 2022-01-23 06:32 | PM.IMPN ---
Progress Note: A&P Assessment and Plan (1) Cellulitis: Qualifiers: Laterality: right Site of cellulitis: extremity Site of cellulitis of extremity: lower extremity Qualified Code(s): L03.115 - Cellulitis of right lower limb Code(s): L03.90 - Cellulitis, unspecified Status: Acute Assessment and Plan: Worsening symptoms on outpatient cefpodoxime x24 hours. WBC 17.1. Afebrile. Elevate RLE to help with edema. 01/17/22 patient given Ancef in the ED. Continued on Vancomycin IV and Ancef 1 gram Q8 hours. Venous Dopplers negative for DVT. No documented abscess or fluid collection noted. 01/18/22 minimal improvement. Increased Ancef 2 grams Q8 hours. Continued on Vancomycin IV pharmacy to dose. Right tib/fib negative for soft tissue gas, foreign body or osseous abnormality. 01/19/22 Vanc trough 8.9 and Vancomycin dose increased 1.75 grams Q12 hours. Ancef 2 grams continued. Less redness noted. Pain is still present and hydrocodone/APAP to 7.5/325 mg PO Q4 hours PRN. Discussed case and antibiotic coverage with ID clinical pharmacist who agrees with antibiotic regimen. 01/20/22 Continued slow improvement in erythema and edema. Pain mildly improving. Will continue Vancomycin IV x 24 more hours and Ancef 2 grams Q8 hours. Transition to oral doxycycline 100 mg BID to complete 10-day antibiotic course when improved and ready for discharge. Blood cultures negative to date. 01/21/2022 Continue the patient's IV antibiotics, the PC increased although she did have a steroid injection of the left knee approximately 4 days ago which may contribute to leukocytosis. Patient complains of worsening pain and swelling, RN at bedside stated appears the same as yesterday. Patient requesting for IV narcotics and oral medications. Obtain repeat x-ray of the foot and tib-fib. Consult Wound Care 01/22/2022 patient continues on IV antibiotics. She does have an increasing WBC therefore the throw myself was added although this may be contributory to the cortisone injection she received for left knee approximately 5 days ago. Patient does complain of pain however the swelling and erythema has decreased since yesterday. Repeat imaging appear WNL. Wound Care evaluated the patient obtained samples from pustules risk found on the right lower extremity, pending reports. 01/23/2022--cultures remain negative, WBC downtrending. Continue IV antibiotics. They were brought in on 01/22/2022 given to the poor historian provided by the patient. (2) Lower extremity edema: Code(s): R60.0 - Localized edema Status: Acute Assessment and Plan: -venous Dopplers negative for DVT -most likely secondary to cellulitis -elevate legs in bed -Continue triamterene/hydrochlorothiazide for her chronic edema. Monitor BP on medication. 01/20/22 Appears improved. As above (3) Tinea pedis of both feet: Code(s): B35.3 - Tinea pedis Status: Acute Assessment and Plan: patient has ordered terbinafine cream for small area on her right lower extremity approximately dime-sized outpatient. 01/18/22 Resume oral terbinafine. As above (4) Eczema: Code(s): L30.9 - Dermatitis, unspecified Status: Acute Assessment and Plan: -patient with steroid shot to the left knee intra-articularly 24 hours prior to admission, however patient also uses steroid cream for eczema and psoriasis noted to bilateral lower extremities. -Continue triamcinolone cream for eczema. As above (5) Rheumatoid arthritis: Code(s): M06.9 - Rheumatoid arthritis, unspecified Status: Chronic Assessment and Plan: chronic history. Patient doses with Enbrel as well as leflunomide for management. -hold leflunomide d/t acute infection. Enbrel injections weekly and held. (6) Hyponatremia: Code(s): E87.1 - Hypo-osmolality and hyponatremia Status: Acute Plan CODE STATUS: FULL CODE Disposition: Home. DC when cellulitis and srinivas
[2022-01-23] MEDS: TERBINAFINE HCL 250 MG TABLET PO (09:00)
[2022-01-23] MEDS: TRIAMTERENE 37.5 MG/HCTZ 25 MG (MAXZIDE) TABLET 0.5 TAB PO (09:00)
[2022-01-23] MEDS: ENOXAPARIN 40 MG/0.4 ML SYRINGE SUB-Q (09:00)
[2022-01-23] MEDS: DOCOSANOL 10% CREAM 2 GM 1 APPLIC TOPICAL ×5 (09:00→21:35)
--- NOTE | 2022-01-23 11:54 | PCNWS ---
Weekly nutritional screen. Patient is tolerating current diet with adequate intake. No weight loss reported. No nutritional needs at this time.
[2022-01-23 13:11] VITALS: BP 119/45; PULSE 86; RESP 16; TEMP 36.8; O2SAT 94
[2022-01-23 18:19] LABS: CRP 37.5 mg/dL (<1.0)
[2022-01-23 19:47] VITALS: BP 138/60; PULSE 90; RESP 16; TEMP 36.4; O2SAT 97
[2022-01-24] MEDS: cefTRIAXone 2 GM in SODIUM CHLORIDE 0.9% IV 100 ML 200 ML IVPB ×2 (02:10→13:40)
[2022-01-24] MEDS: HYDROcodone/acetaminophen (*CRX) 7.5-325 MG TABLET 1 TAB PO ×2 (02:15→20:20)
[2022-01-24 05:02] VITALS: BP 124/70; PULSE 83; RESP 20; TEMP 36.4; O2SAT 100
[2022-01-24 05:25] LABS: Basophils Absolute Auto 0.1 K/mm3 (0.0-0.1); Basophils Percent Auto 0.5 % (0.2-1.2); Eosinophils Absolute Auto 0.3 K/mm3 (0-0.3); Eosinophils Percent Auto 2.1 % (0-4.4); Hematocrit 34.2 % (37.0-47.0); Hemoglobin 11.1 g/dL (12.0-15.0); Immature Granulocyte Absolute 0.35 K/mm3 (0.00-0.031); Immature Granulocyte Percent A 2.7 % (0-0.5); Lymphocytes Absolute Auto 1.24 K/mm3 (0.9-3.2); Lymphocytes Percent Auto 9.6 % (18.3-44.2); Mean Corpuscular HGB Conc 32.5 g/dl (32-36); Mean Corpuscular Volume 89.3 fl (80-100); Mean Platelet Volume 9.7 fl (7.4-10.4); Monocytes Absolute Auto 1.1 K/mm3 (0.1-0.6); Monocytes Percent Auto 8.4 % (2.6-8.5); Neutrophils Percent Auto 76.7 % (45.5-73.1); Platelet Count Result 337 k/mm3 (150-375); Red Blood Count 3.83 M/mm3 (4.2-5.4); Red Cell Distribution Width 12.4 % (11.5-14.5)
[2022-01-24 05:41] LABS: Alanine Aminotransferase 25 U/L (6-35); Albumin Level 3.1 g/dL (3.5-5.1); Alkaline Phosphatase 129 U/L (38-126); Anion Gap 6 mmol/L (8-16); Aspartate Amino Transferase 30 U/L (14-36); Bilirubin,Total 0.3 mg/dL (0.2-1.3); Blood Urea Nitrogen 16 mg/dL (7-17); Calcium 8.9 mg/dL (8.4-10.2); Carbon Dioxide 33 mmol/L (22-30); Chloride 94 mmol/L (98-107); Estimated CRCL calculation 71 ml/min; Estimated Glomerular Filt Rate > 60; Glucose 120 mg/dL (65-110); Potassium 3.8 mmol/L (3.4-5.0); Sodium 133 mmol/L (137-145)
--- NOTE | 2022-01-24 06:44 | PM.IMPN ---
Progress Note: A&P Assessment and Plan (1) Cellulitis: Qualifiers: Laterality: right Site of cellulitis: extremity Site of cellulitis of extremity: lower extremity Qualified Code(s): L03.115 - Cellulitis of right lower limb Code(s): L03.90 - Cellulitis, unspecified Status: Acute Assessment and Plan: Cultures remain negative, WBC 13, continue IV antibiotics. Patient was placed on vancomycin, Rocephin and azithromycin after cellulitic appeared to progress and patient developed significant leukocytosis.-- making improvement (2) Lower extremity edema: Code(s): R60.0 - Localized edema Status: Acute Assessment and Plan: -venous Dopplers negative for DVT As above (3) Tinea pedis of both feet: Code(s): B35.3 - Tinea pedis Status: Acute Assessment and Plan: patient has ordered terbinafine cream for small area on her right lower extremity approximately dime-sized outpatient. 01/18/22 Resume oral terbinafine. As above (4) Eczema: Code(s): L30.9 - Dermatitis, unspecified Status: Acute Assessment and Plan: -patient with steroid shot to the left knee intra-articularly 24 hours prior to admission, however patient also uses steroid cream for eczema and psoriasis noted to bilateral lower extremities. -Continue triamcinolone cream for eczema. As above (5) Rheumatoid arthritis: Code(s): M06.9 - Rheumatoid arthritis, unspecified Status: Chronic Assessment and Plan: chronic history. Patient doses with Enbrel as well as leflunomide for management. -hold leflunomide d/t acute infection. Enbrel injections weekly and held. (6) Hyponatremia: Code(s): E87.1 - Hypo-osmolality and hyponatremia Status: Acute Assessment and Plan: sodium is increased, does not appear to have neuro deficits. Plan CODE STATUS: FULL CODE Disposition: Home. DC when cellulitis and pain with significant improvement and patient stable on oral antibiotics. Subjective Date/time seen: 01/24/22 06:44 His right lower extremity appears improved. Progression from the original line. Asked RN to remark this scan. Patient was tearful this morning. She appears to be having a lot of anxiety although denies additional medications need. Patient also reported that she was tired of being in the hospital. She continues on IV antibiotics with significant improvement after azithromycin was added to medication treatment. Review of Systems Review of Systems: All systems reviewed & are unremarkable except as noted in HPI and below Exam Narrative: General: No distress. Non-toxic appearing. Mental Status/Psych: AAOx4. Clear speech. Pleasant and cooperative. Neutral mood and affect. Skin: Fair, warm, dry. RLE and pedal with 2+ edema, warm to touch mid-calf, moderate erythema with some recession from markings. Tender to palpitation. HEENT: Sclera non-icteric. Pupils equal and round. Oral mucosa moist. Neck: No JVD. Heart: S1 and S2 regular rate and rhythm. No murmurs, gallops, or rubs auscultated. Chest: Respirations even and unlabored. Lung sounds are clear to auscultation bilaterally. No wheezes, rhonchi, or rales. Abdomen: Soft, round and nontender to palpation. Bowel sounds present in all 4 quadrants. Extremities:? Grossly normal ROM all extremities. Dorsalis pedis pulses +2 bilaterally. Neurological: No focal deficits. Objective Data Vital Signs Vital Signs: Vital Signs - 24 hr 01/23/22 08:00 01/23/22 13:11 01/23/22 19:47 Temperature 98.2 F 97.6 F Pulse Rate 86 90 Respiratory Rate 16 16 Blood Pressure 119/45 L 138/60 Pulse Oximetry 94 97 Oxygen Delivery Room Air 01/23/22 20:00 01/24/22 05:02 Temperature 97.6 F Pulse Rate 83 Respiratory Rate 20 Blood Pressure 124/70 Pulse Oximetry 100 Oxygen Delivery Room Air Intake/Output Intake/Output: Intake & Output 01/21/22 01/22/22 01/23/22
[2022-01-24] MEDS: MORPHINE SULFATE (*CRX) 4 MG/ML INJ IV PUSH (07:57)
[2022-01-24] MEDS: ENOXAPARIN 40 MG/0.4 ML SYRINGE SUB-Q (08:33)
[2022-01-24] MEDS: DOCOSANOL 10% CREAM 2 GM 1 APPLIC TOPICAL ×5 (08:33→20:20)
[2022-01-24] MEDS: TERBINAFINE HCL 250 MG TABLET PO (08:33)
[2022-01-24] MEDS: TRIAMTERENE 37.5 MG/HCTZ 25 MG (MAXZIDE) TABLET 0.5 TAB PO (08:34)
[2022-01-24] MEDS: ONDANSETRON INJ 4 MG/2 ML VIAL IV PUSH ×2 (09:18→20:19)
[2022-01-24 14:07] VITALS: BP 114/50; PULSE 80; RESP 12; TEMP 36.4; O2SAT 95
[2022-01-24 14:29] LABS: CRP 27.7 mg/dL (<1.0)
[2022-01-24] MEDS: FAMOTIDINE 20 MG TABLET PO (17:16)
[2022-01-24] MEDS: CENTRAL LINE FLUSH 10 ML IV PUSH (20:20)
[2022-01-24 21:47] VITALS: BP 122/57; PULSE 82; RESP 18; TEMP 36.1; O2SAT 96
[2022-01-25] MEDS: cefTRIAXone 2 GM in SODIUM CHLORIDE 0.9% IV 100 ML 200 ML IVPB ×2 (02:05→14:40)
[2022-01-25] MEDS: HYDROcodone/acetaminophen (*CRX) 7.5-325 MG TABLET 1 TAB PO ×3 (02:09→20:10)
[2022-01-25 05:30] LABS: Basophils Absolute Auto 0.1 K/mm3 (0.0-0.1); Basophils Percent Auto 0.7 % (0.2-1.2); Eosinophils Absolute Auto 0.2 K/mm3 (0-0.3); Eosinophils Percent Auto 1.8 % (0-4.4); Hematocrit 33.4 % (37.0-47.0); Hemoglobin 10.6 g/dL (12.0-15.0); Immature Granulocyte Absolute 0.26 K/mm3 (0.00-0.031); Immature Granulocyte Percent A 1.9 % (0-0.5); Lymphocytes Absolute Auto 1.53 K/mm3 (0.9-3.2); Lymphocytes Percent Auto 11.2 % (18.3-44.2); Mean Corpuscular HGB Conc 31.7 g/dl (32-36); Mean Corpuscular Hemoglobin 28.3 pg (26-34); Mean Corpuscular Volume 89.3 fl (80-100); Mean Platelet Volume 9.7 fl (7.4-10.4); Monocytes Absolute Auto 1.3 K/mm3 (0.1-0.6); Monocytes Percent Auto 9.3 % (2.6-8.5); Neutrophils Absolute Auto 10.2 K/mm3 (1.3-6.7); Neutrophils Percent Auto 75.1 % (45.5-73.1); Platelet Count Result 387 k/mm3 (150-375); Red Blood Count 3.74 M/mm3 (4.2-5.4); Red Cell Distribution Width 12.4 % (11.5-14.5); White Blood Count 13.6 K/mm3 (4.5-10.0)
[2022-01-25 05:35] VITALS: BP 125/67; PULSE 73; RESP 18; TEMP 36.3; O2SAT 97
[2022-01-25 05:48] LABS: Alanine Aminotransferase 25 U/L (6-35); Albumin Level 3.4 g/dL (3.5-5.1); Alkaline Phosphatase 133 U/L (38-126); Anion Gap 8 mmol/L (8-16); Aspartate Amino Transferase 23 U/L (14-36); Bilirubin,Total 0.3 mg/dL (0.2-1.3); Blood Urea Nitrogen 15 mg/dL (7-17); Calcium 8.6 mg/dL (8.4-10.2); Carbon Dioxide 33 mmol/L (22-30); Chloride 93 mmol/L (98-107); Estimated CRCL calculation 53 ml/min; Estimated Glomerular Filt Rate 51; Glucose 108 mg/dL (65-110); Potassium 3.6 mmol/L (3.4-5.0); Sodium 134 mmol/L (137-145)
[2022-01-25] MEDS: CENTRAL LINE FLUSH 10 ML IV PUSH ×2 (06:53→14:40)
--- NOTE | 2022-01-25 07:01 | PM.IMPN ---
Progress Note: A&P Assessment and Plan (1) Cellulitis: Qualifiers: Laterality: right Site of cellulitis: extremity Site of cellulitis of extremity: lower extremity Qualified Code(s): L03.115 - Cellulitis of right lower limb Code(s): L03.90 - Cellulitis, unspecified Status: Acute Assessment and Plan: Cultures remain negative, WBC 13, continue IV antibiotics. Patient was placed on vancomycin, Rocephin and azithromycin after cellulitic appeared to progress and patient developed significant leukocytosis. --Slow improvement (2) Lower extremity edema: Code(s): R60.0 - Localized edema Status: Acute Assessment and Plan: -venous Dopplers negative for DVT As above (3) Tinea pedis of both feet: Code(s): B35.3 - Tinea pedis Status: Acute Assessment and Plan: patient has ordered terbinafine cream for small area on her right lower extremity approximately dime-sized outpatient. 01/18/22 Resume oral terbinafine. As above (4) Eczema: Code(s): L30.9 - Dermatitis, unspecified Status: Acute Assessment and Plan: -patient with steroid shot to the left knee intra-articularly 24 hours prior to admission, however patient also uses steroid cream for eczema and psoriasis noted to bilateral lower extremities. -Continue triamcinolone cream for eczema. As above (5) Rheumatoid arthritis: Code(s): M06.9 - Rheumatoid arthritis, unspecified Status: Chronic Assessment and Plan: chronic history. Patient doses with Enbrel as well as leflunomide for management. -hold leflunomide d/t acute infection. Enbrel injections weekly and held. (6) Hyponatremia: Code(s): E87.1 - Hypo-osmolality and hyponatremia Status: Acute Assessment and Plan: Stable, does not appear to have neuro deficits. Plan CODE STATUS: FULL CODE Disposition: Home. DC when cellulitis and pain with significant improvement and patient stable on oral antibiotics. Subjective Date/time seen: 01/25/22 07:01 Patient was morning. She is having another BM. Patient reported that she had an episode nausea and vomit yesterday after taking her medications. She reports she took her medications on an empty stomach. The take medications with food. Patient's WBC 13.6 sing, continue current antibiotic treatment. No acute events reported by RN during the night Review of Systems Review of Systems: All systems reviewed & are unremarkable except as noted in HPI and below Exam Narrative: General: No distress. Non-toxic appearing. Mental Status/Psych: AAOx4. Clear speech. Pleasant and cooperative. Neutral mood and affect. Skin: Fair, warm, dry. RLE and pedal with 1+ edema, warm to touch mid-calf, moderate erythema with recession from markings. Tender to palpitation. HEENT: Sclera non-icteric. Pupils equal and round. Oral mucosa moist. Neck: No JVD. Heart: S1 and S2 regular rate and rhythm. No murmurs, gallops, or rubs auscultated. Chest: Respirations even and unlabored. Lung sounds are clear to auscultation bilaterally. No wheezes, rhonchi, or rales. Abdomen: Soft, round and nontender to palpation. Bowel sounds present in all 4 quadrants. Extremities:? Grossly normal ROM all extremities. Dorsalis pedis pulses +2 bilaterally. Neurological: No focal deficits. Objective Data Vital Signs Vital Signs: Vital Signs - 24 hr 01/24/22 08:00 01/24/22 14:07 01/24/22 20:29 Temperature 97.5 F L Pulse Rate 80 Respiratory Rate 12 Blood Pressure 114/50 L Pulse Oximetry 95 Oxygen Delivery Room Air Room Air 01/24/22 21:47 01/25/22 05:35 Temperature 97.0 F L 97.3 F L Pulse Rate 82 73 Respiratory Rate 18 18 Blood Pressure 122/57 L 125/67 Pulse Oximetry 96 97 Oxygen Delivery Intake/Output Intake/Output: Intake & Output 01/22/22 01/23/22 01/24/22 01/25/22 23:59 23:59 23:59 23:59 Intake Total 2790 2630 2530 600 Output Total 650 55
[2022-01-25] MEDS: ENOXAPARIN 40 MG/0.4 ML SYRINGE SUB-Q (08:06)
[2022-01-25] MEDS: PANTOPRAZOLE 40 MG TABLET PO (08:06)
[2022-01-25] MEDS: TERBINAFINE HCL 250 MG TABLET PO (08:07)
[2022-01-25] MEDS: TRIAMTERENE 37.5 MG/HCTZ 25 MG (MAXZIDE) TABLET 0.5 TAB PO (08:07)
[2022-01-25 14:00] VITALS: BP 142/59; PULSE 81; RESP 16; TEMP 36.6; O2SAT 95
[2022-01-25 19:32] VITALS: BP 139/61; PULSE 78; RESP 22; TEMP 36.2; O2SAT 100
[2022-01-26] MEDS: cefTRIAXone 2 GM in SODIUM CHLORIDE 0.9% IV 100 ML 200 ML IVPB ×2 (01:49→13:44)
[2022-01-26] MEDS: CENTRAL LINE FLUSH 10 ML IV PUSH ×4 (01:49→21:58)
[2022-01-26] MEDS: HYDROcodone/acetaminophen (*CRX) 7.5-325 MG TABLET 1 TAB PO ×2 (01:51→13:41)
[2022-01-26 04:46] VITALS: BP 123/54; PULSE 69; RESP 20; TEMP 36.2; O2SAT 92
[2022-01-26 06:11] LABS: Estimated CRCL calculation 58 ml/min; Estimated Glomerular Filt Rate 57
--- NOTE | 2022-01-26 07:39 | PM.IMPN ---
Progress Note: A&P Assessment and Plan (1) Cellulitis: Qualifiers: Laterality: right Site of cellulitis: extremity Site of cellulitis of extremity: lower extremity Qualified Code(s): L03.115 - Cellulitis of right lower limb Code(s): L03.90 - Cellulitis, unspecified Status: Acute Assessment and Plan: Cultures remain negative, continue IV antibiotics. Patient was placed on vancomycin, Rocephin and azithromycin after cellulitic appeared to progress and patient developed significant leukocytosis. --Slow improvement --continue treatment plan, possible plan to transition to oral abx later this week. (2) Lower extremity edema: Code(s): R60.0 - Localized edema Status: Acute Assessment and Plan: -venous Dopplers negative for DVT As above (3) Tinea pedis of both feet: Code(s): B35.3 - Tinea pedis Status: Acute Assessment and Plan: patient has ordered terbinafine cream for small area on her right lower extremity approximately dime-sized outpatient. 01/18/22 Resume oral terbinafine. As above (4) Eczema: Code(s): L30.9 - Dermatitis, unspecified Status: Acute Assessment and Plan: -patient with steroid shot to the left knee intra-articularly 24 hours prior to admission, however patient also uses steroid cream for eczema and psoriasis noted to bilateral lower extremities. -Continue triamcinolone cream for eczema. As above (5) Rheumatoid arthritis: Code(s): M06.9 - Rheumatoid arthritis, unspecified Status: Chronic Assessment and Plan: chronic history. Patient doses with Enbrel as well as leflunomide for management. -hold leflunomide d/t acute infection. Enbrel injections weekly and held. (6) Hyponatremia: Code(s): E87.1 - Hypo-osmolality and hyponatremia Status: Acute Assessment and Plan: Stable, does not appear to have neuro deficits. Plan CODE STATUS: FULL CODE Disposition: Home. DC when cellulitis and pain with significant improvement and patient stable on oral antibiotics. Subjective Date/time seen: 01/26/22 07:39 Patient is doing well this morning. Cellulitic appearance is regressing from the line. Patient was able to work with occupational therapy this morning and ambulate to the restroom without significant difficulty or pain. Patient requested to be discharged tomorrow because she has an appointment with her PCP on Wednesday. Pending her labs and clinical progression she could potentially be discharged later this week. Review of Systems Review of Systems: All systems reviewed & are unremarkable except as noted in HPI and below Exam Narrative: General: No distress. Non-toxic appearing. Mental Status/Psych: AAOx4. Clear speech. Pleasant and cooperative. Neutral mood and affect. Skin: Fair, warm, dry. RLE and pedal with 1+ edema, warm to touch, moderate erythema with recession from markings. Tender to palpitation. skin wrinkling HEENT: Sclera non-icteric. Pupils equal and round. Oral mucosa moist. Neck: No JVD. Heart: S1 and S2 regular rate and rhythm. No murmurs, gallops, or rubs auscultated. Chest: Respirations even and unlabored. Lung sounds are clear to auscultation bilaterally. No wheezes, rhonchi, or rales. Abdomen: Soft, round and nontender to palpation. Bowel sounds present in all 4 quadrants. Extremities:? Grossly normal ROM all extremities. Dorsalis pedis pulses +2 bilaterally. Neurological: No focal deficits. Objective Data Vital Signs Vital Signs: Vital Signs - 24 hr 01/25/22 08:20 01/25/22 14:00 01/25/22 19:32 Temperature 97.9 F 97.2 F L Pulse Rate 81 78 Respiratory Rate 16 22 H Blood Pressure 142/59 H 139/61 Pulse Oximetry 95 100 Oxygen Delivery Room Air 01/26/22 04:46 Temperature 97.2 F L Pulse Rate 69 Respiratory Rate 20 Blood Pressure 123/54 L Pulse Oximetry 92 Oxygen Delivery Intake/Output Intake/Output: Intake & Ou
[2022-01-26 07:49] LABS: Basophils Absolute Auto 0.1 K/mm3 (0.0-0.1); Basophils Percent Auto 0.6 % (0.2-1.2); Eosinophils Absolute Auto 0.2 K/mm3 (0-0.3); Eosinophils Percent Auto 1.3 % (0-4.4); Hematocrit 33.3 % (37.0-47.0); Hemoglobin 10.5 g/dL (12.0-15.0); Immature Granulocyte Absolute 0.25 K/mm3 (0.00-0.031); Immature Granulocyte Percent A 1.7 % (0-0.5); Lymphocytes Absolute Auto 1.41 K/mm3 (0.9-3.2); Lymphocytes Percent Auto 9.8 % (18.3-44.2); Mean Corpuscular HGB Conc 31.5 g/dl (32-36); Mean Corpuscular Hemoglobin 28.5 pg (26-34); Mean Corpuscular Volume 90.2 fl (80-100); Monocytes Absolute Auto 1.3 K/mm3 (0.1-0.6); Monocytes Percent Auto 9.3 % (2.6-8.5); Neutrophils Absolute Auto 11.1 K/mm3 (1.3-6.7); Neutrophils Percent Auto 77.3 % (45.5-73.1); Platelet Count Result 367 k/mm3 (150-375); Red Blood Count 3.69 M/mm3 (4.2-5.4); Red Cell Distribution Width 12.5 % (11.5-14.5); White Blood Count 14.4 K/mm3 (4.5-10.0)
[2022-01-26 07:57] LABS: Alanine Aminotransferase 28 U/L (6-35); Albumin Level 3.2 g/dL (3.5-5.1); Alkaline Phosphatase 120 U/L (38-126); Anion Gap 9 mmol/L (8-16); Aspartate Amino Transferase 24 U/L (14-36); Bilirubin,Total 0.2 mg/dL (0.2-1.3); Blood Urea Nitrogen 15 mg/dL (7-17); Calcium 8.5 mg/dL (8.4-10.2); Carbon Dioxide 33 mmol/L (22-30); Chloride 92 mmol/L (98-107); Estimated CRCL calculation 58 ml/min; Estimated Glomerular Filt Rate 57; Glucose 123 mg/dL (65-110); Potassium 3.7 mmol/L (3.4-5.0); Sodium 134 mmol/L (137-145)
[2022-01-26 08:16] LABS: CRP 19.4 mg/dL (<1.0)
[2022-01-26] MEDS: PANTOPRAZOLE 40 MG TABLET PO (08:33)
[2022-01-26] MEDS: TERBINAFINE HCL 250 MG TABLET PO (08:33)
[2022-01-26] MEDS: ENOXAPARIN 40 MG/0.4 ML SYRINGE SUB-Q (08:33)
[2022-01-26] MEDS: TRIAMTERENE 37.5 MG/HCTZ 25 MG (MAXZIDE) TABLET 0.5 TAB PO (08:33)
[2022-01-26 13:20] VITALS: BP 132/74; PULSE 85; RESP 16; TEMP 36.6; O2SAT 98
[2022-01-26 20:08] VITALS: BP 112/55; PULSE 80; RESP 20; TEMP 35.6; O2SAT 93
--- NOTE | 2022-01-26 21:47 | PC.NURSE ---
Per pharmacist Freddy, no trough level needs to be drawn yen 01/26. 2100 Vanc dose received from pharmacy at this time.
[2022-01-27] MEDS: DIPHENHYDRAMINE 1%/ZINC 0.1% CREAM 30 GM TUBE 1 APPLIC TOPICAL (00:02)
[2022-01-27 04:46] VITALS: BP 116/48; PULSE 78; RESP 20; TEMP 36.2; O2SAT 93
[2022-01-27] MEDS: CENTRAL LINE FLUSH 10 ML IV PUSH (06:57)
[2022-01-27 08:05] LABS: Basophils Absolute Auto 0.1 K/mm3 (0.0-0.1); Basophils Percent Auto 0.5 % (0.2-1.2); Eosinophils Absolute Auto 0.2 K/mm3 (0-0.3); Eosinophils Percent Auto 1.1 % (0-4.4); Hematocrit 35.1 % (37.0-47.0); Hemoglobin 11.5 g/dL (12.0-15.0); Immature Granulocyte Absolute 0.22 K/mm3 (0.00-0.031); Immature Granulocyte Percent A 1.4 % (0-0.5); Lymphocytes Absolute Auto 1.29 K/mm3 (0.9-3.2); Lymphocytes Percent Auto 8.2 % (18.3-44.2); Mean Corpuscular HGB Conc 32.8 g/dl (32-36); Mean Corpuscular Hemoglobin 28.9 pg (26-34); Mean Corpuscular Volume 88.2 fl (80-100); Mean Platelet Volume 9.2 fl (7.4-10.4); Monocytes Absolute Auto 1.2 K/mm3 (0.1-0.6); Monocytes Percent Auto 7.4 % (2.6-8.5); Neutrophils Absolute Auto 12.8 K/mm3 (1.3-6.7); Neutrophils Percent Auto 81.4 % (45.5-73.1); Platelet Count Result 439 k/mm3 (150-375); Red Blood Count 3.98 M/mm3 (4.2-5.4); Red Cell Distribution Width 12.2 % (11.5-14.5); White Blood Count 15.7 K/mm3 (4.5-10.0)
[2022-01-27 08:19] LABS: Alanine Aminotransferase 27 U/L (6-35); Albumin Level 3.6 g/dL (3.5-5.1); Alkaline Phosphatase 129 U/L (38-126); Anion Gap 7 mmol/L (8-16); Aspartate Amino Transferase 26 U/L (14-36); Bilirubin,Total 0.4 mg/dL (0.2-1.3); Blood Urea Nitrogen 13 mg/dL (7-17); Carbon Dioxide 32 mmol/L (22-30); Chloride 95 mmol/L (98-107); Estimated CRCL calculation 53 ml/min; Estimated Glomerular Filt Rate 51; Glucose 116 mg/dL (65-110); Magnesium 2.6 mg/dL (1.6-2.3); Potassium 4.2 mmol/L (3.4-5.0); Sodium 134 mmol/L (137-145)
[2022-01-27 08:21] LABS: Lactic Acid Reflex 0.9 mmol/L (0.7-2.0)
[2022-01-27] MEDS: TRIAMTERENE 37.5 MG/HCTZ 25 MG (MAXZIDE) TABLET 0.5 TAB PO (09:01)
[2022-01-27] MEDS: DOXYCYCLINE HYCLATE 100 MG TABLET PO (09:01)
[2022-01-27] MEDS: PANTOPRAZOLE 40 MG TABLET PO (09:01)
[2022-01-27] MEDS: AZITHROMYCIN 250 MG TABLET 500 MG PO (09:02)
[2022-01-27] MEDS: ENOXAPARIN 40 MG/0.4 ML SYRINGE SUB-Q (09:02)
[2022-01-27] MEDS: TERBINAFINE HCL 250 MG TABLET PO (09:03)
[2022-01-27] MEDS: HYDROcodone/acetaminophen (*CRX) 7.5-325 MG TABLET 1 TAB PO (10:43)
--- NOTE | 2022-01-27 12:02 | PM.DS ---
DS: Admitting Diagnosis Discharge Date 01/27/2022 Admitting Diagnosis Cellulitis DS: Discharge Diagnosis Discharge Diagnosis (1) Cellulitis: Qualifiers: Site of cellulitis: extremity Site of cellulitis of extremity: lower extremity Laterality: right Qualified Code(s): L03.115 - Cellulitis of right lower limb Code(s): L03.90 - Cellulitis, unspecified Status: Acute (2) Lower extremity edema: Code(s): R60.0 - Localized edema Status: Acute (3) Tinea pedis of both feet: Code(s): B35.3 - Tinea pedis Status: Acute (4) Eczema: Code(s): L30.9 - Dermatitis, unspecified Status: Acute (5) Rheumatoid arthritis: Code(s): M06.9 - Rheumatoid arthritis, unspecified Status: Chronic (6) Hyponatremia: Code(s): E87.1 - Hypo-osmolality and hyponatremia Status: Acute DS: Summary Hospital Course Hospital Course: # Right lower extremity cellulitis: Failed outpatient treatment with cefpodoxime. Admitted on 01/17/2022. Started on IV antibiotics with vancomycin Rocephin and azithromycin. Patient developed significant leukocytosis. Continue to improve with the regimen. Switched to doxycycline oral antibiotics on 01/26/2022. She will continue on 7 more days of oral antibiotics with Omnicef and doxycycline. Cultures resolving negative. X-ray tibia-fibula was unremarkable. CT lower extremity was done which did not show any underlying abscess or collections and reported subcutaneous edema suggestive of cellulitis. She will follow up with PCP as scheduled tomorrow. # immunocompromised state due to underlying rheumatoid arthritis and use of immunomodulators. # right lower extremity edema venous duplex negative for DVT # tenia pedis of both feet on terbinafine oral which is continued # eczema triamcinolone cream # rheumatoid arthritis chronic on Enbrel and leflunomide. These were held due to acute infection # hyponatremia stable and was monitored throughout the hospital stay. # code status full code # DVT prophylaxis Lovenox throughout the hospital stay. Time Spent with Patient Time attestation: Total time spent providing and/or coordinating discharge services: 45 minutes Exam Narrative: General: No distress. Non-toxic appearing. Mental Status/Psych: AAOx4. Clear speech. Pleasant and cooperative. Normal mood and affect. Skin: Fair, warm, dry. RLE and pedal with 1+ edema, warm to touch, moderate erythema with recession from markings. Tender to palpitation. skin wrinkling HEENT: Sclera non-icteric. Pupils equal and round. Oral mucosa moist. Neck: No JVD. Heart: S1 and S2 regular rate and rhythm. No murmurs, gallops, or rubs auscultated. Chest: Respirations even and unlabored. Lung sounds are clear to auscultation bilaterally. No wheezes, rhonchi, or rales. Abdomen: Soft, round and nontender to palpation. Bowel sounds present in all 4 quadrants. Extremities:? Grossly normal ROM all extremities. Dorsalis pedis pulses +2 bilaterally. Neurological: No focal deficits. DS: Data Data Completed and Pending Labs on day of discharge: Labs from last 24 hours 01/27/22 01/27/22 01/27/22 07:55 07:55 07:55 WBC 15.7 H RBC 3.98 L Hgb 11.5 L Hct 35.1 L MCV 88.2 MCH 28.9 MCHC 32.8 RDW 12.2 Plt Count 439 H MPV 9.2 Immature Gran % (Auto) 1.4 H Neut % (Auto) 81.4 H Lymph % (Auto) 8.2 L [place] % (Auto) 7.4 Eos % (Auto) 1.1 Baso % (Auto) 0.5 Lymph # (Auto) 1.29 [place] # (Auto) 1.2 H Eos # (Auto) 0.2 Baso # (Auto) 0.1 Abs Immat Gran (auto) 0.22 H Absolute Neuts (auto) 12.8 H Absolute Nucleated RBC 0.0 Nucleated RBC % 0.0 Sodium 134 L Potassium 4.2 Chloride 95 L Carbon Dioxide 32 H Anion Gap 7 L BUN 13 Creatinine 1.10 H Estim Creat Clear Calc 53 Estimated GFR 51 L Glucose 116 H Lactic Acid 0.9 Calcium 9.0 Magnesium 2.6 H T
[2022-01-27 14:00] VITALS: BP 127/57; PULSE 82; RESP 20; TEMP 36.4; O2SAT 97
== END 2022-01-27 16:05 | disposition home or self-care (01) | DRG 603 ==
LOC: ANHED 14:14 → ANH2MED 16:43
PROVIDERS: Nurse Practitioner Adult Health; Nurse Practitioner Family; Physician Assistant; Admitting Provider Family Medicine; Emergency Provider General Practice; PCP Family Medicine; Visit Provider Internal Medicine
DX: L03.115 Cellulitis of right lower limb (principal); E87.1 Hypo-osmolality and hyponatremia; M06.9 Rheumatoid arthritis, unspecified; Z79.899 Other long term (current) drug therapy; L30.9 Dermatitis, unspecified; R60.0 Localized edema; B35.3 Tinea pedis; L40.9 Psoriasis, unspecified; Z20.822 Contact with and (suspected) exposure to COVID-19
CPT/HCPCS: 36415; 36569; 73590; 73620; 73700; 80048; 80053; 80202; 82565; 83605; 83735; 84145; 85025; 85027; 85652; 86140; 87040; 87070; 87081; 87205; 93971; 96365; 97161; 97165; 99285; A9270; C1751; C9803; G0378; J0456; J0690; J0696; J1650; J2270; J2405; J3370; U0003; U0005

== ENCOUNTER → 2022-02-12 12:12 | Outpatient (CLI) | payer BC, SELFPAY ==
--- NOTE | ~2022-02-12 | US_ITS ---
EXAMINATION:US venous doppler LE RT INDICATION:Cellulitis. Right leg pain and swelling. TECHNIQUE: Multiple grayscale, color flow and Doppler images of the right lower extremity deep venous systems were obtained and reviewed. COMPARISON:01/17/2022 FINDINGS: The common femoral, superficial femoral and popliteal veins demonstrate normal respiratory variation, augmentation and compressibility. Color flow is also seen within the posterior tibial, pe roneal, greater saphenous and profunda veins. IMPRESSION: 1: No lower extremity deep venous thrombosis. Reviewed, dictated and finalized at location B.
== END ==
PROVIDERS: PCP Family Medicine; Visit Provider Family Medicine
DX: R60.0 Localized edema (principal); L03.90 Cellulitis, unspecified
CPT/HCPCS: 93971

== ENCOUNTER 2022-02-25 09:09 | Outpatient (CLI) | payer BC, SELFPAY ==
[2022-02-25 19:00] LABS: Basophils Absolute Auto 0.1 K/mm3 (0.0-0.1); Eosinophils Absolute Auto 0.2 K/mm3 (0-0.3); Eosinophils Percent Auto 3.5 % (0-4.4); Hematocrit 37.4 % (37.0-47.0); Hemoglobin 11.9 g/dL (12.0-15.0); Immature Granulocyte Absolute 0.02 K/mm3 (0.00-0.031); Immature Granulocyte Percent A 0.3 % (0-0.5); Lymphocytes Absolute Auto 1.86 K/mm3 (0.9-3.2); Lymphocytes Percent Auto 27.5 % (18.3-44.2); Mean Corpuscular HGB Conc 31.8 g/dl (32-36); Mean Corpuscular Hemoglobin 28.1 pg (26-34); Mean Corpuscular Volume 88.4 fl (80-100); Mean Platelet Volume 12.6 fl (7.4-10.4); Monocytes Absolute Auto 0.6 K/mm3 (0.1-0.6); Monocytes Percent Auto 9.5 % (2.6-8.5); Neutrophils Absolute Auto 3.9 K/mm3 (1.3-6.7); Neutrophils Percent Auto 58.2 % (45.5-73.1); Platelet Count Result 172 k/mm3 (150-375); Red Blood Count 4.23 M/mm3 (4.2-5.4); Red Cell Distribution Width 13.3 % (11.5-14.5); White Blood Count 6.8 K/mm3 (4.5-10.0)
[2022-02-25 19:52] LABS: Hemoglobin A1C 5.4 % (<5.7)
[2022-02-25 20:11] LABS: Alanine Aminotransferase 11 U/L (6-35); Albumin Level 3.6 g/dL (3.5-5.1); Alkaline Phosphatase 100 U/L (38-126); Anion Gap 8 mmol/L (8-16); Aspartate Amino Transferase 20 U/L (14-36); Bilirubin,Total 0.6 mg/dL (0.2-1.3); Blood Urea Nitrogen 17 mg/dL (7-17); Calcium 9.3 mg/dL (8.4-10.2); Carbon Dioxide 26 mmol/L (22-30); Chloride 103 mmol/L (98-107); Estimated Glomerular Filt Rate > 60; Glucose 97 mg/dL (65-110); Potassium 4.2 mmol/L (3.4-5.0); Sodium 137 mmol/L (137-145)
== END 2022-02-25 09:10 | disposition home or self-care (01) ==
PROVIDERS: PCP Family Medicine; Visit Provider Family Medicine
DX: L03.90 Cellulitis, unspecified (principal); R73.01 Impaired fasting glucose
CPT/HCPCS: 36415; 80053; 83036; 85025

== ENCOUNTER 2022-03-05 08:21 | Outpatient (CLI) | payer BC, SELFPAY ==
--- NOTE | ~2022-03-05 | US_ITS ---
EXAMINATION: US arterial ankle brachial ind DATE: 03/05/2022 09:18 INDICATION: Lower limb cellulitis with erythema pain and erythema and swelling TECHNIQUE: Segmental pressures and plethysmographic and Doppler waveforms of the brachial and lower e xtremity arteries were obtained. COMPARISON: None. FINDINGS: Right and left brachial artery pressures of 142 mm Hg and 136 mm Hg, respectively, are concordant (no rmal difference <= 30 mmHg). The right ankle-brachial index (EUGENE) is 1.33 (normal >= 0.9-1.0). The right great toe-brachial index (TBI) is 0.58 (normal >= 0.65). Arterial Doppler waveforms are biphasic with brisk systolic upstrokes at both right posterior tibial and dorsalis pedis arteries. The left EUGENE is 1.15. The left TBI is 0.73. Arterial Doppler waveforms are biphasic with brisk systol ic upstrokes at both left posterior tibial and dorsalis pedis arteries. IMPRESSION: 1. Mild arterial occlusive disease to the right lower limb with normal right EUGENE and moderately decre ased TBI. 2. No significant arterial occlusive disease to the left lower limb with normal left EUGENE and TBI. Reviewed, dictated and finalized at location A. IMPRESSION: 1. Mild arterial occlusive disease to the right lower limb with normal right AB I and moderately decreased TBI. 2. No significant arterial occlusive disease to the left lower limb with normal left EUGENE and TBI.
== END 2022-03-05 08:22 | disposition home or self-care (01) ==
PROVIDERS: PCP Family Medicine; Visit Provider Family Medicine
DX: R60.0 Localized edema (principal); L03.90 Cellulitis, unspecified; I73.89 Other specified peripheral vascular diseases
CPT/HCPCS: 93922

== ENCOUNTER 2022-03-10 08:47 | Outpatient (CLI) | payer BC, SELFPAY ==
--- NOTE | ~2022-03-10 | MM_ITS ---
EXAMINATION: MM screening elly BI w ara HISTORY: Screening mammogram TECHNIQUE: Craniocaudal and mediolateral oblique 3-D tomosynthesis images were obtained and synthetic 2-D images were generated. CAD analysis was submitted and interpreted. COMPARISON: 10/25/2020, 08/19/2019, 02/22/2018, 04/06/2016 bilateral screening mammogram examinations BREAST PARENCHYMAL COMPOSITION: There are scattered areas of fibroglandular density. FINDINGS: There is no evidence of suspicious mass, calcification, or architectural distortion to sugg est malignancy in either breast. There has been no suspicious interval change. IMPRESSION: 1. No mammographic evidence of malignancy. 2. Recommend routine screening mammography in one year. BI-RADS Category 1: Negative Reviewed, dictated and finalized at location A.
== END 2022-03-10 08:48 | disposition home or self-care (01) ==
LOC: ANHIMG 08:50
PROVIDERS: PCP Family Medicine; Visit Provider Family Medicine
DX: Z12.31 Encounter for screening mammogram for malignant neoplasm of breast (principal)
CPT/HCPCS: 77063; 77067

== ENCOUNTER → 2022-05-11 14:43 | Outpatient (CLI) | payer BC, SELFPAY ==
--- NOTE | ~2022-05-11 | CT_ITS ---
EXAMINATION: CT lung screening DATE: 05/11/2022 15:14 INDICATION: Personal history of nicotine dependence, prior smoker with 30 pack year history TECHNIQUE: Computed tomography (CT) of the chest was performed without intravenous contrast. The dose -length product (DLP) was 171.60 mGy-cm. Automated exposure control and iterative reconstruction tech [employer]brate were employed. COMPARISON: None FINDINGS: There is a 2 mm nodule of the right middle lobe. The lungs are free of acute opacities. No pleural effusion or pneumothorax. No pathologically enlarged thoracic lymph nodes are identified. The heart size is normal. There is moderate thoracic spondylosis. IMPRESSION: 1. Lung-RADS category 2: Benign appearance or behavior. Continue annual screening with noncontrast lo w-dose chest CT in 12 months. Reviewed, dictated and finalized at location F. ICK OPERATOR IMPRESSION: 1. Lung-RADS category 2: Benign appearance or behavior. Continue annual screeni ng with noncontrast low-dose chest CT in 12 months.
== END ==
PROVIDERS: PCP Physician Assistant; Visit Provider Physician Assistant
DX: Z12.2 Encounter for screening for malignant neoplasm of respiratory organs (principal); Z87.891 Personal history of nicotine dependence
CPT/HCPCS: 71271

== ENCOUNTER 2023-03-18 09:18 | Outpatient (CLI) | payer BC, SELFPAY ==
[2023-03-18 13:55] LABS: Basophils Absolute Auto 0.1 K/mm3 (0.0-0.1); Basophils Percent Auto 1.1 % (0.2-1.2); Eosinophils Absolute Auto 0.1 K/mm3 (0-0.3); Eosinophils Percent Auto 2.2 % (0-4.4); Hematocrit 42.4 % (37.0-47.0); Hemoglobin 13.6 g/dL (12.0-15.0); Immature Granulocyte Absolute 0.02 K/mm3 (0.00-0.031); Immature Granulocyte Percent A 0.3 % (0-0.5); Lymphocytes Absolute Auto 1.58 K/mm3 (0.9-3.2); Lymphocytes Percent Auto 24.3 % (18.3-44.2); Mean Corpuscular HGB Conc 32.1 g/dl (32-36); Mean Corpuscular Hemoglobin 28.7 pg (26-34); Mean Corpuscular Volume 89.5 fl (80-100); Mean Platelet Volume 12.5 fl (7.4-10.4); Monocytes Absolute Auto 0.7 K/mm3 (0.1-0.6); Monocytes Percent Auto 11.4 % (2.6-8.5); Neutrophils Percent Auto 60.7 % (45.5-73.1); Platelet Count Result 153 k/mm3 (150-375); Red Blood Count 4.74 M/mm3 (4.2-5.4); Red Cell Distribution Width 12.6 % (11.5-14.5); White Blood Count 6.5 K/mm3 (4.5-10.0)
[2023-03-18 15:08] LABS: Alanine Aminotransferase 17 U/L (6-35); Albumin Level 4.1 g/dL (3.5-5.1); Alkaline Phosphatase 73 U/L (38-126); Anion Gap 3 mmol/L (8-16); Aspartate Amino Transferase 25 U/L (14-36); Bilirubin,Total 0.6 mg/dL (0.2-1.3); Blood Urea Nitrogen 17 mg/dL (7-17); Calcium 9.3 mg/dL (8.4-10.2); Carbon Dioxide 32 mmol/L (22-30); Chloride 104 mmol/L (98-107); Cholesterol 225 mg/dL (0-200); Estimated Glomerular Filt Rate > 60; Glucose 108 mg/dL (65-110); HDL Direct 65 mg/dL; Potassium 4.9 mmol/L (3.4-5.0); Sodium 139 mmol/L (137-145); Triglycerides 91 mg/dL (<150)
[2023-03-18 15:18] LABS: LDL Cholesterol Direct 126 mg/dL
[2023-03-18 18:52] LABS: Thyroid Stimulating Hormone Reflex 0.711 uIU/mL (0.465-4.68)
[2023-03-18 19:35] LABS: Hemoglobin A1C 5.3 % (<5.7)
== END 2023-03-18 09:19 | disposition home or self-care (01) ==
LOC: ANHGOSHLAB 09:19
PROVIDERS: PCP Family Medicine; Visit Provider Physician Assistant
DX: R73.01 Impaired fasting glucose (principal); M06.9 Rheumatoid arthritis, unspecified; F32.A Depression, unspecified; G47.30 Sleep apnea, unspecified; Z79.899 Other long term (current) drug therapy
CPT/HCPCS: 36415; 80053; 80061; 83036; 84443; 85025

== ENCOUNTER → 2023-05-14 08:37 | Outpatient (CLI) | payer BC, SELFPAY ==
--- NOTE | ~2023-05-14 | CT_ITS ---
CT Scan of the Chest without Contrast: Clinical Indication: Lung cancer screening, personal history of nicotine dependence Technique: Contiguous sections were acquired throughout the chest without intravenous contrast. Dose reduction technique was used on this scan by utilizing automated exposure control and iterative recon struction technique. The dose-length product (DLP) was 185.88 mGy-cm. COMPARISON: 05/11/2022 Findings: There is no evidence of any significant mediastinal, hilar or axillary lymphadenopathy. The mediastin al soft tissues appear normal. There is no evidence of pleural or pericardial effusion. Stable 2 mm right middle lobe pulmonary nodule noted. Images through the upper abdomen reveal no abnormalities. Impression: Lung RADS 2: Benign appearance. 12 month follow-up screening CT advised. Reviewed, dictated and finalized at location . ASSEMBLER Impression: Lung RADS 2: Benign appearance. 12 month follow-up screening CT advised.
== END ==
PROVIDERS: PCP Physician Assistant; Visit Provider Physician Assistant
DX: Z12.2 Encounter for screening for malignant neoplasm of respiratory organs (principal); Z87.891 Personal history of nicotine dependence
CPT/HCPCS: 71271

== ENCOUNTER 2023-05-17 13:52 | Outpatient (CLI) | payer BC, SELFPAY ==
--- NOTE | ~2023-05-17 | MM_ITS ---
EXAMINATION: MM screening elly BI w ara HISTORY: Screening mammogram TECHNIQUE: Craniocaudal and mediolateral oblique 3-D tomosynthesis images were obtained and synthetic 2-D images were generated. CAD analysis was submitted and interpreted. COMPARISON: 03/10/2022, 10/25/2020, 08/19/2019 bilateral screening mammogram examinations BREAST PARENCHYMAL COMPOSITION: There are scattered areas of fibroglandular density. FINDINGS: Stable fibroglandular asymmetry. Occasional benign calcifications. There is no evidence of suspicious mass, calcification, or architectural distortion to suggest malignancy in either breast. T here has been no suspicious interval change. IMPRESSION: 1. No mammographic evidence of malignancy. 2. Recommend routine screening mammography in one year. BI-RADS Category 2: Benign finding(s). Reviewed, dictated and finalized at location A. E SANDER
== END 2023-05-17 13:53 | disposition home or self-care (01) ==
LOC: ANHIMG 13:56
PROVIDERS: PCP Family Medicine; Visit Provider Physician Assistant
DX: Z12.31 Encounter for screening mammogram for malignant neoplasm of breast (principal)
CPT/HCPCS: 77063; 77067

== ENCOUNTER 2023-07-21 09:29 | Outpatient (CLI) | payer BC, SELFPAY ==
--- NOTE | 2023-07-27 15:08 | WPDHOMESLEEP ---
Sleep Study - Home Unattended Date of Study: 07/21/23 Ordering Provider: Roderick Leach PA-C Interpreting Provider: Aretha Smith, DO Home Sleep Study Type: Watch PAT Height: 1.57 m Weight: 92.986 kg Body Mass Index: 37.5 Neck Circumference (inches): 15.75 [place]: 14 Reason for Sleep Study Snoring, witnessed apneas Sleep History The patient is a 63-year-old female with rheumatoid arthritis, eczema, depression and history of tobacco use that had a sleep study ordered by her primary care for evaluation of sleep apnea. The patient rarely awakens from sleep short of breath. She rarely awakens at night with heartburn, belching or cough. The patient frequently snores and is frequently loud enough that others complain. She rarely has trouble sleeping when she has a cold. She denies waking up gasping for air throughout the night. She frequently has breathing problems at night observed by herself or others. She occasionally sweats excessively at night. She rarely has heart palpitations or irregular heartbeats during the night. She occasionally falls asleep during the day but never while driving. She denies sleep paralysis and cataplexy. She rarely has trouble at school or work due to sleepiness. She rarely experiences vivid dreamlike scenes upon awakening or falling asleep. She denies feeling afraid of going to sleep. She rarely has nightmares. She rarely remembers her dreams. She occasionally has thoughts racing through her mind. She rarely feels sad or depressed. She occasionally has anxiety. She rarely has muscular tension. She denies noticing parts of her body jerk. She rarely kicks during the night. She rarely has crawling and aching feelings in her legs and rarely has leg pain during the night. She denies grinding her teeth during sleep and denies awakening with morning jaw pain. She is occasionally bothered by pain during the day and occasionally awakened by pain during the night. She occasionally wakes up feeling stiff in the morning. She occasionally wakes up with sore or achy muscles. She occasionally wakes up with pain in the neck, spine and other joints. She does not have a set bedtime due to her working swing shifts. It takes her a minimum of 1 hour to fall asleep. She wakes up 1-2 times throughout the night to urinate and is able to fall back asleep within 5-10 minutes. She does not have a set wake up time due to her work schedule. She typically gets 6-7 hours of sleep per night. She will stay in bed for 5-10 minutes after waking up in the morning. She will consume caffeinated beverages within 2 hours of bedtime. She denies engaging in physical exercise before bedtime. She will watch television before falling asleep. She will occasionally take naps but they are not refreshing. She consumes 3-4 caffeinated beverages per day. She quit smoking cigarettes 6 years ago. She consumes alcoholic beverages 2-3 times per week. She denies recreational drug use. [facility] Past Medical History Medical History Eczema Tinea Social History Social History Social History: Caffeine-coffee/tea Smoking packs per day: 0.5 Smoking cigarettes per day: 10.0 Years smoked: 30 Smoking pack-years: 15.00 Smoking status: Former smoker Tobacco type: cigarettes Smoking end date: 06/28/17 Alcohol intake: current Drinks per week: 15 Alcohol use details: Socially Substance use: never Substance use type: does not use Lack of Transportation: No Lack of Food: Never True Current Housing: I Have Housing Concerned About Future Housing: No Difficulty Paying Gas/Electric Bills: No Difficulty Paying for Meds: No Currently Unemployed: No Education: Associate Degree Difficulty w/ Childcare or Family Care: No Spiritual care concerns: No Medications Home Medications Medicat
[2023-07-27 15:34] VITALS: BMI 37.5
== END 2023-07-22 12:48 | disposition home or self-care (01) ==
LOC: ANHCSM 09:30
PROVIDERS: PCP Physician Assistant; Visit Provider Physician Assistant
DX: G47.33 Obstructive sleep apnea (adult) (pediatric) (principal); R06.3 Periodic breathing
CPT/HCPCS: 95800

== ENCOUNTER 2023-07-27 10:01 | Outpatient (CLI) | payer BC, SELFPAY ==
--- NOTE | 2023-07-27 10:07 | EST_ITS ---
Patient Info Name: Albina Allen Age: 63 years : 1960 Gender: Female Ht: 62 in Wt: 205 lbs BSA: 2.06 m2 HR: 71 bpm BP: 121 / 67 mmHg Heart Rhythm: Sinus Rhythm Exam Date: 07/27/2023 10:17 AM Exam Location: [facility] Patient Status: Outpatient Admit Date: 07/27/2023 Staff Ordering Physician: Roderick Leach PA-C Attending Provider: Roderick Leach PA-C Exercise Technologist: Sarita Castle CT Exercise Physician: Lonnie Argueta DO Exam Type: CA stress test treadmill Study Info Indications R07.89 - Other chest pain A treadmill exercise stress test was performed. Summary 1. 1. Negative Alonzo exercise stress test for ischemic ST changes by ECG criteria. 2. 2. Good functional capacity, achieving 8.9 METs of workload. 3. 3. Appropriate HR response to exercise. 4. 4. Appropriate HR recovery at 1 minute post exercise. 5. 5. No imaging with stress testing. 6. 6. Patient informed of the above results. Protocol: Alonzo Stress ECG Details Stage: REST Duration (min): 1 min : 39 sec Speed (mph): 0.0 Grade (%): 0 HR (bpm): 78 SBP (mmHg): 121 DBP (mmHg): 67 METS: --- Stage: REST Duration (min): 6 min : 33 sec Speed (mph): 0.0 Grade (%): 0 HR (bpm): 77 SBP (mmHg): 121 DBP (mmHg): 67 METS: --- Stage: STAGE 1 Duration (min): 1 min : 0 sec Speed (mph): 1.7 Grade (%): 10 HR (bpm): 100 SBP (mmHg): 121 DBP (mmHg): 67 METS: --- Stage: STAGE 1 Duration (min): 2 min : 0 sec Speed (mph): 1.7 Grade (%): 10 HR (bpm): 112 SBP (mmHg): 121 DBP (mmHg): 67 METS: --- Stage: STAGE 1 Duration (min): 3 min : 0 sec Speed (mph): 1.7 Grade (%): 10 HR (bpm): 113 SBP (mmHg): 154 DBP (mmHg): 77 METS: --- Stage: STAGE 2 Duration (min): 1 min : 0 sec Speed (mph): 2.5 Grade (%): 12 HR (bpm): 122 SBP (mmHg): 154 DBP (mmHg): 77 METS: --- Stage: STAGE 2 Duration (min): 2 min : 0 sec Speed (mph): 2.5 Grade (%): 12 HR (bpm): 126 SBP (mmHg): 164 DBP (mmHg): 61 METS: --- Stage: STAGE 2 Duration (min): 3 min : 0 sec Speed (mph): 2.5 Grade (%): 12 HR (bpm): 125 SBP (mmHg): 164 DBP (mmHg): 61 METS: --- Stage: STAGE 3 Duration (min): 1 min : 0 sec Speed (mph): 3.4 Grade (%): 14 HR (bpm): 136 SBP (mmHg): 176 DBP (mmHg): 71 METS: --- Stage: STAGE 3 Duration (min): 1 min : 4 sec Speed (mph): 0.0 Grade (%): 0 HR (bpm): 137 SBP (mmHg): 176 DBP (mmHg): 71 METS: --- Stage: RECOVERY Duration (min): 0 min : 55 sec Speed (mph): 0.0 Grade (%): 0 HR (bpm): 112 SBP (mmHg): 176 DBP (mmHg): 71 METS: --- Stage: RECOVERY Duration (min): 1 min : 55 sec Speed (mph): 0.0 Grade (%): 0 HR (bpm): 91 SBP (mmHg): 176 DBP (mmHg): 71 METS: --- Stage: RECOVERY Duration (min): 2 min : 55 sec Speed (mph): 0.0 Grade (%): 0 HR (bpm): 91 SBP (mmHg): 156 DBP (mmHg): 76
== END 2023-07-27 10:02 | disposition home or self-care (01) ==
PROVIDERS: PCP Family Medicine; Visit Provider Physician Assistant
DX: R07.9 Chest pain, unspecified (principal)
CPT/HCPCS: 93017

== ENCOUNTER 2023-08-04 09:46 | Outpatient (CLI) | payer BC, SELFPAY ==
[2023-08-24 14:56] VITALS: BMI 37.5
--- NOTE | 2023-08-24 14:56 | WPDSLEEPSTUD ---
Sleep Study Date of Study: 08/04/23 Ordering Provider: Roderick Leach PA-C Interpreting Physician: Aretha Smith DO Sleep Study Type: CPAP Titration Height: 1.57 m Weight: 92.986 kg Body Mass Index: 37.5 Neck Circumference (inches): 15.75 [place]: 14 Reason for Sleep Study The patient had a WatchPAT home sleep study on 07/21/2023 that showed an overall AHI of 64.9 and a central apnea index of 19.5. The patient spent 14.2% of the study in probable Zaid Adam respirations. Sleep History The patient is a 63-year-old female with rheumatoid arthritis, eczema, depression and history of tobacco use that had a sleep study ordered by her primary care for evaluation of sleep apnea. The patient rarely awakens from sleep short of breath.? She rarely awakens at night with heartburn, belching or cough.? The patient frequently snores and is frequently loud enough that others complain.? She rarely has trouble sleeping when she has a cold.? She denies waking up gasping for air throughout the night.? She frequently has breathing problems at night observed by herself or others.? She occasionally sweats excessively at night.? She rarely has heart palpitations or irregular heartbeats during the night.? She occasionally falls asleep during the day but never while driving.? She denies sleep paralysis and cataplexy.? She rarely has trouble at school or work due to sleepiness.? She rarely experiences vivid dreamlike scenes upon awakening or falling asleep.? She denies feeling afraid of going to sleep.? She rarely has nightmares.? She rarely remembers her dreams.? She occasionally has thoughts racing through her mind.? She rarely feels sad or depressed.? She occasionally has anxiety.? She rarely has muscular tension.? She denies noticing parts of her body jerk.? She rarely kicks during the night.? She rarely has crawling and aching feelings in her legs and rarely has leg pain during the night.? She denies grinding her teeth during sleep and denies awakening with morning jaw pain.? She is occasionally bothered by pain during the day and occasionally awakened by pain during the night.? She occasionally wakes up feeling stiff in the morning.? She occasionally wakes up with sore or achy muscles.? She occasionally wakes up with pain in the neck, spine and other joints.? She does not have a set bedtime due to her working swing shifts.? It takes her a minimum of 1 hour to fall asleep.? She wakes up 1-2 times throughout the night to urinate and is able to fall back asleep within 5-10 minutes.? She does not have a set wake up time due to her work schedule.? She typically gets 6-7 hours of sleep per night.? She will stay in bed for 5-10 minutes after waking up in the morning.? She will consume caffeinated beverages within 2 hours of bedtime.? She denies engaging in physical exercise before bedtime.? She will watch television before falling asleep.? She will occasionally take naps but they are not refreshing.? She consumes 3-4 caffeinated beverages per day.? She quit smoking cigarettes 6 years ago.? She consumes alcoholic beverages 2-3 times per week.? She denies recreational drug use. [facility] Past Medical History Medical History Eczema Tinea Social History Social History Social History: Caffeine-coffee/tea Smoking packs per day: 0.5 Smoking cigarettes per day: 10.0 Years smoked: 30 Smoking pack-years: 15.00 Smoking status: Former smoker Tobacco type: cigarettes Smoking end date: 06/28/17 Alcohol intake: current Drinks per week: 15 Alcohol use details: Socially Substance use: never Substance use type: does not use Lack of Transportation: No Lack of Food: Never True Current Housing: I Have Housing Concerned About Future Housing: No Difficulty Paying Gas/Electric Bills: No Difficulty Paying for Meds: No Currently Unemployed:
== END 2023-08-05 05:59 | disposition home or self-care (01) ==
LOC: ANHCSM 09:48
PROVIDERS: PCP Physician Assistant; Visit Provider Physician Assistant
DX: G47.33 Obstructive sleep apnea (adult) (pediatric) (principal); F39 Unspecified mood [affective] disorder
CPT/HCPCS: 95811

== ENCOUNTER 2024-06-19 14:53 | Outpatient (CLI) | payer BC, SELFPAY ==
--- NOTE | ~2024-06-19 | CT_ITS ---
EXAMINATION: CT lung screening DATE: 06/19/2024 15:09 INDICATION: Personal history of nicotine dependence TECHNIQUE: Computed tomography (CT) of the chest was performed without intravenous contrast. Addition al 3D reconstructions utilizing coronal maximum intensity projection (MIP) were performed. Automated exposure control and iterative reconstruction technique were employed. The dose-length product was 14 7.53 mGy-cm. COMPARISON: 05/14/2023 FINDINGS: Unchanged 3 mm left upper lobe nodule. Unchanged 3 mm relatively high attenuation likely calcified ri ght middle lobe nodule. No new or enlarging pulmonary nodules, pneumonia, pulmonary edema or pleural effusion. Heart size is normal. Small amount of aortic valve calcific location. Thoracic aorta is nor mal in caliber. No pathologically enlarged thoracic lymphadenopathy. 8 mm low-attenuation cyst at the dome of the liver. Moderate thoracic spondylosis. IMPRESSION: 1. Lung-RADS category 2: Benign appearance or behavior. Continue annual screening with noncontrast lo w-dose chest CT in 12 months. Reviewed, dictated and finalized at location B. OPATHIC DOCTOR IMPRESSION: 1. Lung-RADS category 2: Benign appearance or behavior. Continue annual screeni ng with noncontrast low-dose chest CT in 12 months.
== END 2024-06-19 14:54 | disposition home or self-care (01) ==
LOC: MICIMG 14:53
PROVIDERS: PCP Family Medicine; Visit Provider Family Medicine
DX: Z12.2 Encounter for screening for malignant neoplasm of respiratory organs (principal); Z87.891 Personal history of nicotine dependence
CPT/HCPCS: 71271

== ENCOUNTER 2024-08-19 10:29 | Outpatient (CLI) | payer BC, SELFPAY ==
--- NOTE | ~2024-08-19 | MM_ITS ---
EXAMINATION: MM screening [facility] BI w ara HISTORY: Screening mammogram TECHNIQUE: Craniocaudal and mediolateral oblique 3-D tomosynthesis images were obtained and synthetic 2-D images were generated. CAD analysis was submitted and interpreted. COMPARISON: 05/17/2023, 03/10/2022, 10/25/2020, 08/19/2019 BREAST PARENCHYMAL COMPOSITION:Not Dense. There are scattered areas of fibroglandular density. FINDINGS: No suspicious mass, calcification, or architectural distortion are identified in either collin ast to suggest malignancy. There has been no suspicious interval change. IMPRESSION: No mammographic evidence of malignancy. Recommend routine screening mammography in one year. BI-RADS Category 1: Negative Reviewed, dictated and finalized at location . 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
--- OUTSIDE RECORDS SUMMARY | 2024-08-19 10:33 | XMS_ITS | Referral Summary ---
Author Organization [facility] Address [address] [id number] Care Team Providers Care Director Of Child Welfare Services Name Role Phone Jaimie Crow MD Primary Care Provider + Allergies Active Allergy Reactions Criticality Noted Date Comments Penicillins Rash Medium 06/13/2013 Medications cholecalcifero l (VITAMIN D-3) 2,000 unit tablet daily 09/22/19 14 Active ascorbic acid (VITAMIN C) 500 mg tablet,chewabl e daily Active naproxen (NAPROSYN) 500 mg tablet Take 1 tablet (500 mg total) by mouth 2 (two) times a day as needed for pain 60 tablet 01/06/20 22 Active Additional Information Patient not taking.Reported on 05/08/2024 tacrolimus (PROTOPIC) 0.1 % ointment as needed 02/10/20 22 Active clotrimazole 1 % creamIndicatio ns:tinea pedis Apply topically 2 (two) times a day 30 g 2 04/01/20 22 Active Wegovy 0.25 mg/0.5 mL auto-injector every 7 days 01/10/20 24 Active predniSONE (DELTASONE) 10 mg tablet Take 3 tbs for 7 days, 2 tabs for 7 days, 1 tab x 7 days 42 tablet 05/08/20 24 Active EnbreL Mini 50 mg/mL (1 mL) cartridge INJECT 50 MG (1 ML) UNDER THE SKIN ONCE A WEEK 12 mL 06/26/20 24 Active leflunomide (ARAVA) 20 mg tablet TAKE 1 TABLET DAILY 30 tablet 07/31/19 25 Active leflunomide (ARAVA) 20 mg tablet Take 1 tablet (20 mg total) by mouth daily 90 tablet 05/17/20 24 025 Discontinued Active Problems Problem Noted Date Diagnosed Date Fatigue 07/24/2022 Assessment & Plan (07/24/2022 2:55 PM OPERATIONS SUPPORT REPRESENTATIVE): Labs. Discussed importance of adequate sleep; good sleep hygiene in controlling weight as well as for overall health. BMI 40.0-44.9, adult 07/24/2022 Weight loss counseling, encounter for 05/01/2022 Assessment & Plan (07/24/2022 2:41 PM OPERATIONS SUPPORT REPRESENTATIVE): Discussed that significant health benefits/risk reduction may be seen with even 5% weight loss. Discussed that weight loss will require calorie deficit. Calculated basal metabolic rate and estimated total energy expenditure; discussed 500-1000 kcal/day deficit to lose 1-2 lb per week. Asked to keep detailed food diary for at least 1 week and bring to next visit. Discussed setting SMART goals. Discussed relatively small, although significant, role of exercise in weight loss; greater importance in weight maintenance as shown in Look Ahead study and National Weight Control Registry. Discussed recommendation/goal for 150 minutes per week moderate-intensity aerobic exercise. Metabolic and nutritional disorder 05/01/2022 Assessment & Plan (07/24/2022 2:42 PM OPERATIONS SUPPORT REPRESENTATIVE): Labs. Reviewed available prior labs in chart and Care Everywhere. Recommended low-carb, low-glycemic diet; choose whole grains and avoid more highly processed carbohydrates. Reviewed importance of adequate protein intake of 1-1.2 g/kg IBW/day. Class 3 severe obesity with body mass index (BMI) of 40.0 to 44.9 in adult 05/01/2022 Assessment & Plan (07/24/2022 2:43 PM OPERATIONS SUPPORT REPRESENTATIVE): Obesity is unchanged.. Plan: General weight loss/lifestyle modification strategies discussed (elicit support from others; identify saboteurs; non-food rewards; etc.)., Diet interventions: as noted.., Informal exercise measures discussed; e.g. taking stairs instead of elevator., Regular aerobic exercise program discussed. and Further, more detailed recommendations pending review of labs and food record. Cellulitis of right lower extremity 04/01/2022 Assessment & Plan (2022 9:32 AM CDT): Lymphedema to the right lower extremity with a history of cellulitis. Referral sent for by a tap for lymphedema pump evaluation. We discussed the importance of continuing her compression therapy, I have written a prescription for new stockings. Assessment & Plan (04/01/2022 9:44 AM CDT): Right lower extremity cellulitis involving jones to ankle, rapidly progressing on 01/16/2022 (reportedly about 4 hours after undergoing a Left knee joint aspiration with steroid injection). Admitted to OSH and treated with IV antibiotics (vancomycin) and about 28 days of doxycycline (completed end of January 2022). This was her first episode of cellulitis. Underlying risk factors in the RLE for cellulitis include: tinea pedis (patient reports ongoing issue with fungal foot infections for which she has been using topical clotrimazole cream and was prescribed terbinafine by PCP), possible vascular insufficiency (currently undergoing work-up with vascular surgery) and venous stasis, and immunosuppression for rheumatoid arthritis (immunosuppressive medications are currently held). Patient reports that symptoms are doing much better than before - but still has swelling and erythema of the RLE (and also has pruritis, erythema, and flaky skin of her toes/feet) and evidence of venous stasis changes/dermatitis (persistent erythema without pain, hyperpigmentation of the posterior calf). Discussed with patient that we should treat the tinea pedis and she should follow-up with vascular surgery, but at this time she remains at risk for developing a cellulitis again given ongoing risk factors. The other issue is her history of eczema - it is not clear that what is on her feet right now is eczema, but will try treating with antifungals first and if it persists then she should follow-up with her manufacturer representative to see if some of the issues on her feet are related to eczema. Plan - PO fluconazole 400mg weekly x 4 weeks and topical clotrimazole cream 1% for tinea pedis - Encouraged patient to follow-up with vascular surgery to possible flow issues - Encouraged patient to discuss with rheumatology whether there are any treatment options available to her as she notes her RA is starting to bother her again - Follow-up with ID clinic in 4 weeks - if symptoms don't improve significantly after fluconazole, patient should follow-up with her manufacturer representative to discuss whether the issues on her feet are related to eczema Tinea pedis of both feet 04/01/2022 Eczema 04/01/2022 Venous stasis dermatitis of right lower extremit y 04/01/2022 Rheumatoid arthritis 05/24/2018 Primary osteoarthritis of both hands 05/24/2018 Immunizations Immunization Administration Dates Next Due Influenza, Trivalent, Preservative Free, Intramu scular 07/25/2013 Pneumococcal Conjugate PCV 13 09/13/2018 Pneumococcal Polysaccharide PPV23 11/16/2018 Social History Tobacco Use Types Packs/Day Years Used Date Smoking Tobacco: Former Smokeless Tobacco: Never Tobacco Cessation:Counseling Given: Not Answered Alcohol Use Standard Drinks/Week Comments Yes 4 (1 standard drink = 0.6 oz pur e alcohol) times a week AUDIT-C Answer Date Recorded Q1: How often do you have a drink containing alcohol? 4 or more times a week 05/08/2024 Average Number of Drinks Not on file 024 Frequency of Binge Drinking Not on file 04/28 Comments Unknown Sex and Gender Information Value Date Recorded Sex Assigned at Not on file Legal Sex Female 2:57 AM OPERATIONS SUPPORT REPRESENTATIVE Gender Identity Female 09/13/2018 9:38 AM CDT Sexual Orientation Not on file Last Filed Vital Signs Vital Sign Reading Time Taken Comments Blood Pressure 155/78 05/08/2024 1:00 PM OPERATIONS SUPPORT REPRESENTATIVE Pulse 73 05/08/2024 1:00 PM OPERATIONS SUPPORT REPRESENTATIVE Temperature 36.7 C (98 F) 05/08/2024 1:00 PM OPERATIONS SUPPORT REPRESENTATIVE Respiratory Rate 18 11/10/2022 9:45 AM CDT Oxygen Saturation 100% 05/08/2024 1:00 PM OPERATIONS SUPPORT REPRESENTATIVE Inhaled Oxygen Concentration - - Weight 89.8 kg (198 lb) 05/08/2024 1:00 PM OPERATIONS SUPPORT REPRESENTATIVE Height 157.5 cm (5' 2 ) 05/08/2024 1:00 PM OPERATIONS SUPPORT REPRESENTATIVE Body Mass Index 36.21 05/08/2024 1:00 PM OPERATIONS SUPPORT REPRESENTATIVE Plan of Treatment Not on file Procedures Procedure Name Priority Date/Time Associated Diagnosis Comments HEPATITIS C ANTIBODY Routine 01/07/2023 10:00 AM CDT High risk medication use SCREENING MAMMOGRAM W ARNAV Routine 06/13/2013 11:45 AM OPERATIONS SUPPORT REPRESENTATIVE from Last 3 Months or Most Recently Relevant to Health Maintenance Results * Hepatitis C antibody (01/07/2023 10:00 AM CDT) Hep C Ab Non Reactive Non Reactive [facility] - 01 Comment: HCV antibody alone does not differentiate between previously resolved infection and active infection. Equivocal and Reactive HCV antibody results should be followed up with an HCV RNA test to support the diagnosis of active HCV infection. Blood 01/07/2023 10:0 0 AM CDT 01/07/2023 Narrative [facility] - 01/08/2023 7:11 AM CDT Performed at: [address] [place] [id number] C Software Engineer: Anuel Denton PhD, Phone: [phone] Maria Ines Yanez MD LAB MICROBIOLOGY - GENERAL ORDERABLES Final Result [facility] - 01 * Screening Mammogram W Arnav (06/13/2013 11:45 AM OPERATIONS SUPPORT REPRESENTATIVE) Anatomical Region Laterality Modality Breast N/A Mammography 06/13/2013 11:4 5 AM OPERATIONS SUPPORT REPRESENTATIVE Narrative 06/13/2013 12:43 PM OPERATIONS SUPPORT REPRESENTATIVE ROSA NUNEZ M.D. FINAL REPORT ACC# Date Time Exam [id number] Jun 13, 2013 11:45:00 [id number] Wrist 2 views Lt [id number] Jun 13, 2013 11:45:00 [id number] Wrist 2 views Rt [id number] Jun 13, 2013 11:45:00 62404 Hand 2 views Rt [id number] Jun 13, 2013 11:45:00 [id number] Hand 2 views Lt [id number] Jun 13, 2013 11:45:00 05682 Foot 2 views Lt [id number] Jun 13, 2013 11:45:00 [id number] Foot 2 views Rt EXAMINATION: 1. Left hand 2 views 2. Left foot 2 views 3. Left wrist 2 views 4. Right hand 2 views 5. Right foot 2 views 6. Right wrist 2 views HISTORY: Polyarticular arthritis FINDINGS: Two view examinations of both hands, both feet, and both wrists are read without comparison. Feet: On the left, there is mild osteoarthritis at the great toe metatarsophalangeal and interphalangeal joints. A large heel spur is present. There is no fracture Giulia erosion, or dislocation. On the right, there is also a heel spur. Joint spaces are normal. There is no fracture or erosion. Hands and wrists: The joint spaces are normal and symmetric bilaterally. There is no fracture, erosion, or bone abnormality. Alignment and mineralization are normal. IMPRESSION: 1. Mild left great toe metatarsophalangeal and interphalangeal osteoarthritis. 2. Bilateral heel spurs. 3. Normal examinations of both hands and both wrists. Requested By: BJ TOTH ANP Dictated By: ROSA NUNEZ M.D. on Jun 13 2013 12:42P This document has been electronically signed by: ROSA NUNEZ M.D. on Jun 13 2013 12:42P Procedure Note Provider, MD Queenie - 11/01/2016 ROSA NUNEZ M.D. FINAL REPORT ACC# Date Time Exam [id number] Jun 13, 2013 11:45:00 [id number] Wrist 2 views Lt [id number] Jun 13, 2013 11:45:00 [id number] Wrist 2 views Rt [id number] Jun 13, 2013 11:45:00 15192 Hand 2 views Rt [id number] Jun 13, 2013 11:45:00 23207 Hand 2 views Lt [id number] Jun 13, 2013 11:45:00 14804 Foot 2 views Lt [id number] Jun 13, 2013 11:45:00 24194 Foot 2 views Rt EXAMINATION: 1. Left hand 2 views 2. Left foot 2 views 3. Left wrist 2 views 4. Right hand 2 views 5. Right foot 2 views 6. Right wrist 2 views HISTORY: Polyarticular arthritis FINDINGS: Two view examinations of both hands, both feet, and both wrists are read without comparison. Feet: On the left, there is mild osteoarthritis at the great toe metatarsophalangeal and interphalangeal joints. A large heel spur is present. There is no fracture Giulia erosion, or dislocation. On the right, there is also a heel spur. Joint spaces are normal. There is no fracture or erosion. Hands and wrists: The joint spaces are normal and symmetric bilaterally. There is no fracture, erosion, or bone abnormality. Alignment and mineralization are normal. IMPRESSION: 1. Mild left great toe metatarsophalangeal and interphalangeal osteoarthritis. 2. Bilateral heel spurs. 3. Normal examinations of both hands and both wrists. Requested By: BJ TOTH ANP Dictated By: ROSA NUNEZ M.D. on Jun 13 2013 12:42P This document has been electronically signed by: ROSA NUNEZ M.D. on Jun 13 2013 12:42P Historical Provider MD MEDEL MAMMO PROCEDURES Marilee l Result from Last 3 Months or Most Recently Relevant to Health Maintenance Insurance [employer] CHOICE OOS DNS:Net OOS BLUE ACC CHOICE OOS Care Teams Director Of Child Welfare Services Relationship Specialty Start Date End Date Jaimie Crow MD PCP - General Family Medicine 05/01/22
--- OUTSIDE RECORDS SUMMARY | 2024-08-19 10:33 | XMS_ITS | Clinical Summary ---
Author Organization [facility] Address [address] [phone] Care Team Providers Care Drill Grinder Name Role Phone Jaimie Crow MD Primary [...] 07/24/2022 Assessment & Plan (07/24/2022 2:55 PM AUTOMOTIVE HEAVY MECHANIC): Labs. Discussed importance of adequate sleep; good sleep hygiene in controlling weight as well as for overall health. BMI 40.0-44.9, adult 07/24/2022 Weight loss counseling, encounter for 05/01/2022 Assessment & Plan (07/24/2022 2:41 PM AUTOMOTIVE HEAVY MECHANIC): Discussed that significant health benefits/risk reduction may [...] 05/01/2022 Assessment & Plan (07/24/2022 2:42 PM AUTOMOTIVE HEAVY MECHANIC): Labs. Reviewed available prior labs in chart and Care Everywhere. Recommended low-carb, low-glycemic diet; choose whole grains and avoid more highly processed carbohydrates. Reviewed importance of adequate protein intake of 1-1.2 g/kg IBW/day. Class 3 severe obesity with body mass index (BMI) of 40.0 to 44.9 in adult 05/01/2022 Assessment & Plan (07/24/2022 2:43 PM AUTOMOTIVE HEAVY MECHANIC): Obesity is unchanged.. Plan: General weight loss/lifestyle [...] persists then she should follow-up with her insurance claims examiner to see if some of the issues [...] after fluconazole, patient should follow-up with her insurance claims examiner to discuss whether the issues on her feet are related to eczema Tinea pedis of both feet 04/01/2022 Eczema 04/01/2022 Venous stasis dermatitis of right lower extremit y 04/01/2022 Rheumatoid arthritis 05/24/2018 Primary osteoarthritis of both hands 05/24/2018 Immunizations Immunization Administration Dates Next Due Influenza, Trivalent, Preservative Free, Intramu scular 07/25/2013 Pneumococcal Conjugate PCV 13 09/13/2018 Pneumococcal Polysaccharide PPV23 11/16/2018 Surgical History Surgery Date Site/Laterality Comments [place] NEUROPLASTY &/TRANSPOS ME RAHUL NRV CARPAL TUNNE Neuroplasty Median Nerve At Carpal Tunnel - 1993 and 1989 (Added by TW Conv) [place] DELIVERY ONLY Section - (Added by TW Conv) Medical History Medical History Date Comments 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, treated - Treated for approximately one year in the late , last chest x-ray 2012 normal per employer (Added by TW Conv) Rheumatic fever Family History Relation Name Status Comments Father Alive Mother Alive Social History Tobacco Use Types Packs/Day Years [...] on file Legal Sex Female 2:57 AM AUTOMOTIVE HEAVY MECHANIC Gender Identity Female 09/13/2018 9:38 AM CDT Sexual Orientation Not on file Obstetrics History Last Filed Vital Signs Vital Sign Reading Time Taken Comments Blood Pressure 155/78 05/08/2024 1:00 PM AUTOMOTIVE HEAVY MECHANIC Pulse 73 05/08/2024 1:00 PM AUTOMOTIVE HEAVY MECHANIC Temperature 36.7 C (98 F) 05/08/2024 1:00 PM AUTOMOTIVE HEAVY MECHANIC Respiratory Rate 18 11/10/2022 9:45 AM CDT Oxygen Saturation 100% 05/08/2024 1:00 PM AUTOMOTIVE HEAVY MECHANIC Inhaled Oxygen Concentration - - Weight 89.8 kg (198 lb) 05/08/2024 1:00 PM AUTOMOTIVE HEAVY MECHANIC Height 157.5 cm (5' 2 ) 05/08/2024 1:00 PM AUTOMOTIVE HEAVY MECHANIC Body Mass Index 36.21 05/08/2024 1:00 PM AUTOMOTIVE HEAVY MECHANIC Plan of Treatment Health Maintenance Due Date Last Done Comments Cervical Cancer Screening 1962 Colon Cancer Screening-Colonoscopy 1962 Depression Screening 1962 DTaP/Tdap/Td Vaccine (1 - Tdap) 1973 Hepatitis B Screening 1980 Regular Well Visit/Exam 18-64 1980 Zoster Vaccine (1 of 2) 2012 Breast Cancer Screening-Mammogram 06/13/2014 06/13/2013 Influenza Vaccine (#1) 2024 0, 06/07/2019, 07/04/2018, Additional history exists Pneumococcal vaccine <65 Aged Out 11/16/2018, 08/26 No longer eligible based on patient's age to complete this topic Hepatitis C Screening Completed 01/07/2023 , 09/13/2018, 06/13/2013 Procedures Procedure Name Priority Date/Time Associated Diagnosis Comments HEPATITIS C ANTIBODY Routine 01/07/2023 10:00 AM CDT High risk medication use SCREENING MAMMOGRAM W MEGHAN Routine 06/13/2013 11:45 AM AUTOMOTIVE HEAVY MECHANIC from Last 3 Months or Most Recently [...] 01/07/2023 10:0 0 AM CDT 01/07/2023 Narrative [facility] - 01/08/2023 7:11 AM CDT Performed at: 01 - [address] [id number] Hearth Feeder: Anuel Denton PhD, Phone: [phone] us Maria Ines Yanez MD LAB MICROBIOLOGY - GENERAL ORDERABLES Final Result [facility] - 01 * Screening Mammogram W Meghan (06/13/2013 11:45 AM AUTOMOTIVE HEAVY MECHANIC) Anatomical Region Laterality Modality Breast N/A Mammography 06/13/2013 11:4 5 AM AUTOMOTIVE HEAVY MECHANIC Narrative 06/13/2013 12:43 PM AUTOMOTIVE HEAVY MECHANIC ROSA NUNEZ M.D. FINAL REPORT ACC# Date Time Exam [id number] Jun 13, 2013 11:45:00 15650 Wrist 2 views Lt [id number] Jun 13, 2013 11:45:00 [id number] Wrist 2 views Rt [id number] Jun 13, 2013 11:45:00 [id number] Hand 2 views Rt [id number] Jun 13, 2013 11:45:00 26277 Hand 2 views Lt [id number] Jun 13, 2013 11:45:00 90698 Foot 2 views Lt [id number] Jun 13, 2013 11:45:00 [id number] Foot 2 views Rt EXAMINATION: 1. Left [...] and both wrists. Requested By: BJ TOTH Dictated By: ROSA NUNEZ M.D. on Jun 13 2013 12:42P This document has been electronically signed by: ROSA NUNEZ M.D. on Jun 13 2013 12:42P Procedure Note Provider, MD Queenie - 11/01/2016 ROSA NUNEZ M.D. FINAL REPORT ACC# Date Time Exam [id number] Jun 13, 2013 11:45:00 [id number] Wrist 2 views Lt [id number] Jun 13, 2013 11:45:00 [id number] Wrist 2 views Rt [id number] Jun 13, 2013 11:45:00 75999 Hand 2 views Rt [id number] Jun 13, 2013 11:45:00 28013 Hand 2 views Lt [id number] Jun 13, 2013 11:45:00 67203 Foot 2 views Lt [id number] Jun 13, 2013 11:45:00 10543 Foot 2 views Rt EXAMINATION: 1. Left [...] and both wrists. Requested By: BJ TOTH Dictated By: ROSA NUNEZ M.D. on Jun 13 2013 12:42P This document has been electronically signed by: ROSA NUNEZ M.D. on Jun 13 2013 12:42P us Historical Provider MD MEDEL MAMMO PROCEDURES Marilee l Result from Last 3 Months or Most Recently Relevant to Health Maintenance Insurance BLUE ACC CHOICE OOS [employer] ([employer]) OOS BLUE ACC CHOICE OOS Member Subscriber Plan / Payer (Ef fective 2022-Present) Name:Albina Allen Relation to Subscriber:Self Name:Albina Allen Payer ID:[id number] (NAIC) Type:BC ALLIANCE Address: [facility] [id number] [id number] Care Teams Drill Grinder Relationship Specialty Start Date End Date Jaimie Crow MD PCP - General Family Medicine 05/01/22
== END 2024-08-19 10:30 | disposition home or self-care (01) ==
LOC: ANHIMG 10:31
PROVIDERS: PCP Family Medicine; Visit Provider Family Medicine
DX: Z12.31 Encounter for screening mammogram for malignant neoplasm of breast (principal)
CPT/HCPCS: 77063; 77067

== ENCOUNTER 2024-10-23 00:37 | Day surgery (SDC) | payer BC, SELFPAY ==
[2024-10-13 13:24] VITALS: BMI 32.9
--- OUTSIDE RECORDS SUMMARY | 2024-10-23 00:39 | XMS_ITS | Clinical Summary ---
Author Organization [facility] Address [address] [id number] Care Team Providers Care Master Scheduler Name Role Phone Jaimie Crow MD Primary Care Provider + Allergies Active Allergy Reactions Criticality Noted Date Comments Penicillins Rash Medium 06/13/2013 Medications cholecalciferol (VITAMIN D-3) 2,000 unit tablet daily 4 Active ascorbic acid (VITAMIN C) 500 mg tablet,chewable daily Acti ve naproxen (NAPROSYN) 500 mg tablet Take 1 tablet (500 mg total) by mouth 2 (two) times a day as needed for pain 60 tablet 2 Active Additional Information Patient not taking.Reported on 05/08/2024 tacrolimus (PROTOPIC) 0.1 % ointment as needed 2 Active clotrimazole 1 % creamIndication s:tinea pedis Apply topically 2 (two) times a day 30 g 2 2 Active Wegovy 0.25 mg/0.5 mL auto-injector every 7 days 4 Active predniSONE (DELTASONE) 10 mg tablet Take 3 tbs for 7 days, 2 tabs for 7 days, 1 tab x 7 days 42 tablet 4 Active EnbreL Mini 50 mg/mL (1 mL) cartridge INJECT 50 MG (1 ML) UNDER THE SKIN ONCE A WEEK 12 mL 5 Active leflunomide (ARAVA) 20 mg tablet TAKE 1 TABLET DAILY 30 tablet 5 Active Active Problems Problem Noted Date Diagnosed Date Fatigue 07/24/2022 Assessment & Plan (07/24/2022 2:55 PM RADIATION CONTROL SPECIALIST): Labs. Discussed importance of adequate sleep; good sleep hygiene in controlling weight as well as for overall health. BMI 40.0-44.9, adult 07/24/2022 Weight loss counseling, encounter for 05/01/2022 Assessment & Plan (07/24/2022 2:41 PM RADIATION CONTROL SPECIALIST): Discussed that significant health benefits/risk reduction may [...] 05/01/2022 Assessment & Plan (07/24/2022 2:42 PM RADIATION CONTROL SPECIALIST): Labs. Reviewed available prior labs in chart and Care Everywhere. Recommended low-carb, low-glycemic diet; choose whole grains and avoid more highly processed carbohydrates. Reviewed importance of adequate protein intake of 1-1.2 g/kg IBW/day. Class 3 severe obesity with body mass index (BMI) of 40.0 to 44.9 in adult 05/01/2022 Assessment & Plan (07/24/2022 2:43 PM RADIATION CONTROL SPECIALIST): Obesity is unchanged.. Plan: General weight loss/lifestyle [...] persists then she should follow-up with her community health nursing director to see if some of the issues [...] after fluconazole, patient should follow-up with her community health nursing director to discuss whether the issues on her [...] in the late , last chest x-ray 2013 normal per employer (Added by [employer]) [...] on file Legal Sex Female 2:57 AM RADIATION CONTROL SPECIALIST Gender Identity Female 09/13/2018 9:38 AM CDT Sexual Orientation Not on file Obstetrics History Last Filed Vital Signs Vital Sign Reading Time Taken Comments Blood Pressure 155/78 05/08/2024 1:00 PM RADIATION CONTROL SPECIALIST Pulse 73 05/08/2024 1:00 PM RADIATION CONTROL SPECIALIST Temperature 36.7 C (98 F) 05/08/2024 1:00 PM RADIATION CONTROL SPECIALIST Respiratory Rate 18 11/10/2022 9:45 AM CDT Oxygen Saturation 100% 05/08/2024 1:00 PM RADIATION CONTROL SPECIALIST Inhaled Oxygen Concentration - - Weight 89.8 kg (198 lb) 05/08/2024 1:00 PM RADIATION CONTROL SPECIALIST Height 157.5 cm (5' 2 ) 05/08/2024 1:00 PM RADIATION CONTROL SPECIALIST Body Mass Index 36.21 05/08/2024 1:00 PM RADIATION CONTROL SPECIALIST Plan of Treatment Health Maintenance Due Date Last Done Comments Cervical Cancer Screening 1962 Colon Cancer Screening-Colonoscopy 1962 Depression Screening 1962 DTaP/Tdap/Td Vaccine (1 - Tdap) 1973 Hepatitis B Screening 1980 Regular Well Visit/Exam 18-64 1980 Zoster Vaccine (1 of 2) 2012 Breast Cancer Screening-Mammogram 06/13/2014 06/13/2013 Influenza Vaccine (Season Ended) 2025 04/02/2020, 06/07/2019, 07/04/2018, Additional history exists Pneumococcal vaccine <65 Aged Out 11/16/2018, 08/26 No longer eligible based on patient's age to complete this topic Hepatitis C Screening Completed 01/07/2023 , 09/13/2018, 06/13/2013 Procedures Procedure Name Priority Date/Time Associated Diagnosis Comments HEPATITIS C ANTIBODY Routine 01/07/2023 10:00 AM CDT High risk medication use SCREENING MAMMOGRAM W MEGHAN Routine 06/13/2013 11:45 AM RADIATION CONTROL SPECIALIST from Last 3 Months or Most Recently [...] - 01/08/2023 7:11 AM CDT Performed at: [facility] [id number] Cane Feeder: Anuel Denton PhD, Phone: [phone] us Maria Ines Yanez MD LAB MICROBIOLOGY - GENERAL ORDERABLES Final Result [facility] - 01 * Screening Mammogram W Meghan (06/13/2013 11:45 AM RADIATION CONTROL SPECIALIST) Anatomical Region Laterality Modality Breast N/A Mammography 06/13/2013 11:4 5 AM RADIATION CONTROL SPECIALIST Narrative 06/13/2013 12:43 PM RADIATION CONTROL SPECIALIST ROSA NUNEZ M.D. FINAL REPORT ACC# Date Time Exam [id number] Jun 13, 2013 11:45:00 [id number] Wrist 2 views Lt [id number] Jun 13, 2013 11:45:00 64737 Wrist 2 views Rt [id number] Jun 13, 2013 11:45:00 74945 Hand 2 views Rt [id number] Jun 13, 2013 11:45:00 71791 Hand 2 views Lt [id number] Jun 13, 2013 11:45:00 46129 Foot 2 views Lt [id number] Jun 13, 2013 11:45:00 01017 Foot 2 views Rt EXAMINATION: 1. Left [...] both hands and both wrists. Requested By: JB TOTH ANP Dictated By: ROSA NUNEZ M.D. on Jun 13 2013 12:42P This document has been electronically signed by: ROSA NUNEZ M.D. on Jun 13 2013 12:42P Procedure Note Provider, MD Queenie - 11/01/2016 ROSA NUNEZ M.D. FINAL REPORT ACC# Date Time Exam [id number] Jun 13, 2013 11:45:00 [id number] Wrist 2 views Lt [id number] Jun 13, 2013 11:45:00 81074 Wrist 2 views Rt [id number] Jun 13, 2013 11:45:00 63027 Hand 2 views Rt [id number] Jun 13, 2013 11:45:00 25553 Hand 2 views Lt [id number] Jun 13, 2013 11:45:00 02375 Foot 2 views Lt [id number] Jun 13, 2013 11:45:00 09773 Foot 2 views Rt EXAMINATION: 1. Left [...] Health Maintenance Insurance BLUE ACC CHOICE OOS [employer] OOS BLUE ACC CHOICE OOS Care Teams Master Scheduler Relationship Specialty Start Date End Date Jaimie Crow MD PCP - General Family Medicine 05/01/22
--- OUTSIDE RECORDS SUMMARY | 2024-10-23 00:39 | XMS_ITS | Referral Summary ---
Author Organization [facility] Address [address] [phone] Care Team Providers Care Trust Vault Clerk Name Role Phone Jaimie Crow MD Primary [...] 07/24/2022 Assessment & Plan (07/24/2022 2:55 PM BOAT CARPENTER): Labs. Discussed importance of adequate sleep; good sleep hygiene in controlling weight as well as for overall health. BMI 40.0-44.9, adult 07/24/2022 Weight loss counseling, encounter for 05/01/2022 Assessment & Plan (07/24/2022 2:41 PM BOAT CARPENTER): Discussed that significant health benefits/risk reduction may [...] 05/01/2022 Assessment & Plan (07/24/2022 2:42 PM BOAT CARPENTER): Labs. Reviewed available prior labs in chart and Care Everywhere. Recommended low-carb, low-glycemic diet; choose whole grains and avoid more highly processed carbohydrates. Reviewed importance of adequate protein intake of 1-1.2 g/kg IBW/day. Class 3 severe obesity with body mass index (BMI) of 40.0 to 44.9 in adult 05/01/2022 Assessment & Plan (07/24/2022 2:43 PM BOAT CARPENTER): Obesity is unchanged.. 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 circus trainer to discuss whether the issues on her [...] on file Legal Sex Female 2:57 AM BOAT CARPENTER Gender Identity Female 09/13/2018 9:38 AM CDT Sexual Orientation Not on file Last Filed Vital Signs Vital Sign Reading Time Taken Comments Blood Pressure 155/78 05/08/2024 1:00 PM BOAT CARPENTER Pulse 73 05/08/2024 1:00 PM BOAT CARPENTER Temperature 36.7 C (98 F) 05/08/2024 1:00 PM BOAT CARPENTER Respiratory Rate 18 11/10/2022 9:45 AM CDT Oxygen Saturation 100% 05/08/2024 1:00 PM BOAT CARPENTER Inhaled Oxygen Concentration - - Weight 89.8 kg (198 lb) 05/08/2024 1:00 PM BOAT CARPENTER Height 157.5 cm (5' 2 ) 05/08/2024 1:00 PM BOAT CARPENTER Body Mass Index 36.21 05/08/2024 1:00 PM BOAT CARPENTER Plan of Treatment Not on file Procedures Procedure Name Priority Date/Time Associated Diagnosis Comments HEPATITIS C ANTIBODY Routine 01/07/2023 10:00 AM CDT High risk medication use SCREENING MAMMOGRAM W MEGHAN Routine 06/13/2013 11:45 AM BOAT CARPENTER from Last 3 Months or Most Recently [...] - 01/08/2023 7:11 AM CDT Performed at: [address] [place] [id number] Airline Managerial Supervisor: Anuel Denton PhD, Phone: [phone] Maria Ines Yanez MD LAB MICROBIOLOGY - GENERAL ORDERABLES Final Result [facility] - 01 * Screening Mammogram W Meghan (06/13/2013 11:45 AM BOAT CARPENTER) Anatomical Region Laterality Modality Breast N/A Mammography 06/13/2013 11:4 5 AM BOAT CARPENTER Narrative 06/13/2013 12:43 PM BOAT CARPENTER ROSA NUNEZ M.D. FINAL REPORT ACC# Date Time Exam [id number] Jun 13, 2013 11:45:00 79870 Wrist 2 views Lt [id number] Jun 13, 2013 11:45:00 06844 Wrist 2 views Rt [id number] Jun 13, 2013 11:45:00 38781 Hand 2 views Rt [id number] Jun 13, 2013 11:45:00 03222 Hand 2 views Lt [id number] Jun 13, 2013 11:45:00 66457 Foot 2 views Lt [id number] Jun 13, 2013 11:45:00 24744 Foot 2 views Rt EXAMINATION: 1. Left [...] M.D. FINAL REPORT ACC# Date Time Exam [id number] Jun 13, 2013 11:45:00 19282 Wrist 2 views Lt [id number] Jun 13, 2013 11:45:00 73426 Wrist 2 views Rt [id number] Jun 13, 2013 11:45:00 57409 Hand 2 views Rt [id number] Jun 13, 2013 11:45:00 56282 Hand 2 views Lt [id number] Jun 13, 2013 11:45:00 12805 Foot 2 views Lt [id number] Jun 13, 2013 11:45:00 90782 Foot 2 views Rt EXAMINATION: 1. Left [...] Most Recently Relevant to Health Maintenance Insurance [employer] OOS [facility] CHOICE OOS Care Teams Trust Vault Clerk Relationship Specialty Start Date End Date Jaimie Crow MD PCP - General Family Medicine 05/01/22
[2024-10-23 08:15] VITALS: BP 142/82; PULSE 62; RESP 16; TEMP 36.1; O2SAT 100; BMI 33.3
[2024-10-23] MEDS: LACTATED RINGERS 1,000 ML 150 ML IV CONT (08:32)
--- NOTE | 2024-10-23 08:54 | PM.IMHP ---
H&P: HPI History of Present Illness Date/Time: 10/23/24 08:54 Chief Complaint: Screening colonoscopy Narrative: This is the patient's 2nd colonoscopy. There are no GI symptoms and there is no family history of colorectal cancer. Review of Systems Review of Systems: All systems reviewed & are unremarkable except as noted in HPI and below PMFSH Past Medical History Medical History Fever blister Eczema Tinea Onychomycosis Tinea pedis of both feet Social History Social History Social History: Caffeine-coffee/tea Smoking packs per day: 0.5 Smoking cigarettes per day: 10.0 Years smoked: 30 Smoking pack-years: 15.00 Smoking status: Former smoker Tobacco type: cigarettes Smoking end date: 06/28/17 Alcohol intake: current Drinks per week: 15 Alcohol use details: Socially Substance use: never Substance use type: does not use Do You Feel Safe in your Home?: Yes Lack of Transportation: No Lack of Food: Never True Current Housing: I Have Housing Concerned About Future Housing: No Difficulty Paying Gas/Electric Bills: No Difficulty Paying for Meds: No Currently Unemployed: No Education: Associate Degree Difficulty w/ Childcare or Family Care: No Spiritual care concerns: No Meds Home Medications and Allergies Home Medications ?Medication ?Instructions ?Recorded ?Confirmed ?Type lysine 1,000 mg tablet 1,000 mg PO DAILY 09/17/22 10/23/24 History etanercept 25 mg/0.5 mL 25 mg subcut WEEKLY 03/18/23 10/13/24 History subcutaneous solution (Enbrel) cpap #1 ea 08/25/23 10/13/24 Rx cyclobenzaprine 5 mg tablet 5 mg PO TID PRN muscle spasm #30 12/06/23 10/13/24 Rx tabs ibuprofen 800 mg tablet 800 mg PO TID #30 tabs 12/06/23 10/23/24 Rx tacrolimus 0.1 % topical ointment 1 applic topical DAILY 12/06/23 10/23/24 History triamcinolone acetonide 0.1 % applic topical 12/06/23 06/14/24 History topical cream leflunomide 20 mg tablet 20 mg PO DAILY 12/29/23 10/23/24 History valacyclovir 500 mg tablet 500 mg PO Q12H #30 tabs 03/21/24 10/13/24 Rx acyclovir 5 % topical ointment 1 applic topical 6XD 7 days #15 03/22/24 10/13/24 Rx grams ciclopirox 8 % topical solution 1 applic topical DAILY 4 weeks 06/14/24 10/13/24 Rx #6.6 mL tirzepatide (weight loss) 2.5 2.5 mg subcut WEEKLY 10/13/24 10/13/24 History mg/0.5 mL subcutaneous pen injector (Zepbound) Allergies Allergy/AdvReac Type Severity Reaction Status Date / Time Penicillins Allergy Unknown Rash Verified 10/23/24 08:13 Vital Signs Vital Signs - 24 hr 10/23/24 08:15 Temperature 97 F L Pulse Rate 62 Respiratory Rate 16 Blood Pressure 142/82 H Pulse Oximetry 100 Oxygen Delivery Room Air Exam Const: General: cooperative and healthy appearing Resp: Effort & Inspection: normal respiratory effort and able to speak in complete sentences Auscultation: clear to auscultation bilaterally Cardio: Rate: regular rate Rhythm: regular rhythm GI: Inspection: normal to inspection GI Palp: No No hepatosplenomegaly present Auscultation: normal bowel sounds Rectal Exam: deferred Skin: General skin exam: normal color Psych: Appearance: grossly normal Mental Status: mental status grossly normal Assessment and Plan Assessment and plan (1) Encounter for screening colonoscopy: Code(s): Z12.11 - Encounter for screening for malignant neoplasm of colon Status: Acute Assessment and Plan: The patient is deemed a good candidate for the procedure. Consent signed. Will proceed.
--- NOTE | 2024-10-23 09:00 | WPDANESEPPF ---
Anes - Initial Pre Proc Eval Procedure: Operation Date: 10/23/24 09:30 Proposed Procedures p Colonoscopy - Milan Mlaik MD <Ruby Lutz CRNA - Last Filed: 10/23/24 09:03> Date/Time: 10/23/24 09:00 <Ruby Lutz CRNA - Last Filed: 10/23/24 09:03> Surgeon: Milan Malik MD <Ruby Lutz CRNA - Last Filed: 10/23/24 09:03> Pre Op Diagnosis: fecal abnormalities <Ruby Lutz CRNA - Last Filed: 10/23/24 09:03> Patient Data Age: 64 Gender: F Height: 1.57 m Weight: 82.8 kg <Ruby Lutz CRNA - Last Filed: 10/23/24 09:03> Last Vital Signs Temp 36.1 C L 10/23/24 08:15 Pulse 62 10/23/24 08:15 Resp 16 10/23/24 08:15 BP 142/82 H 10/23/24 08:15 Pulse Ox 100 10/23/24 08:15 O2 Del Method Room Air 10/23/24 08:15 <Ruby Lutz CRNA - Last Filed: 10/23/24 09:03> Allergies Allergy/AdvReac Type Severity Reaction Status Date / Time Penicillins Allergy Unknown Rash Verified 10/23/24 08:13 <Ruby Lutz CRNA - Last Filed: 10/23/24 09:03> Home Medications ?Medication ?Instructions ?Recorded ?Confirmed ?Type lysine 1,000 mg tablet 1,000 mg PO DAILY 09/17/22 10/23/24 History etanercept 25 mg/0.5 mL 25 mg subcut WEEKLY 03/18/23 10/13/24 History subcutaneous solution (Enbrel) cpap #1 ea 08/25/23 10/13/24 Rx cyclobenzaprine 5 mg tablet 5 mg PO TID PRN muscle spasm #30 12/06/23 10/13/24 Rx tabs ibuprofen 800 mg tablet 800 mg PO TID #30 tabs 12/06/23 10/23/24 Rx tacrolimus 0.1 % topical ointment 1 applic topical DAILY 12/06/23 10/23/24 History triamcinolone acetonide 0.1 % applic topical 12/06/23 06/14/24 History topical cream leflunomide 20 mg tablet 20 mg PO DAILY 12/29/23 10/23/24 History valacyclovir 500 mg tablet 500 mg PO Q12H #30 tabs 03/21/24 10/13/24 Rx acyclovir 5 % topical ointment 1 applic topical 6XD 7 days #15 03/22/24 10/13/24 Rx grams ciclopirox 8 % topical solution 1 applic topical DAILY 4 weeks 06/14/24 10/13/24 Rx #6.6 mL tirzepatide (weight loss) 2.5 2.5 mg subcut WEEKLY 10/13/24 10/13/24 History mg/0.5 mL subcutaneous pen injector (Zepbound) <Ruby Lutz CRNA - Last Filed: 10/23/24 09:03> Patient hx anesthesia problems: post op nausea/vomiting <uRby Lutz CRNA - Last Filed: 10/23/24 09:03> Family hx anesthesia problems: none <Ruby Lutz CRNA - Last Filed: 10/23/24 09:03> Results Review: All pre-operative results and documents have been reviewed as part of the pre-operative evaluation. <Ruby Lutz CRNA - Last Filed: 10/23/24 09:03> [facility] Past Medical History Medical History: Medical History Former smoker quit 2018, 1ppd/30 years NARCISA (obstructive sleep apnea) Depression Peripheral arterial disease 9.8.22 Mild arterial occlusive disease to the right lower limb with normal right EUGENE and moderately decreased TBI. 2. No significant arterial occlusive disease to the left lower limb with normal left EUGENE and TBI. Obesity (BMI 30-39.9) Rheumatoid arthritis Fever blister Eczema Tinea Onychomycosis Tinea pedis of both feet <Ruby Lutz CRNA - Last Filed: 10/23/24 09:03> Social History Social History: Social History Social History: Caffeine-coffee/tea Smoking packs per day: 0.5 Smoking cigarettes per day: 10.0 Years smoked: 30 Smoking pack-years: 15.00 Smoking status: Former smoker Tobacco type: cigarettes Smoking end date: 06/28/17 Alcohol intake: current Drinks per week: 15 Alcohol use details: Socially Substance use: never Substance use type: does not use Do You Feel Safe in your Home?: Yes Lack of Transportation: No Lack of Food: Never True Current Housing: I Have Housing Concerned About Future Housing: No Difficulty Paying Gas/Electric Bills: No Difficulty Paying for Meds: No Currently Unemployed: No Education: Associate Degree Difficulty w/ Childcare or Family Care: No Spiritual care concerns: No <Ruby Lutz CRNA - Last Filed: 10/23/24 09:03> Anes - Eval Final PreProcedure Day of Procedure 10/23/24 09:00 <Ruby Lutz CRNA - Last Filed: 10/23/24 09:03> Patient weight: obese <Ruby Lutz CRNA - Last Filed: 10/23/24 09:03> Heart: regular rate and rhythm <Ruby Lutz CRNA - Last Filed: 10/23/24 09:03> Lungs: clear to auscultation <Ruby Lutz CRNA - Last Filed: 10/23/24 09:03> normal air movement <Andre Shepherd DO - Last Filed: 10/23/24 09:07> Airway: Mallampati scale class II <Ruby Lutz CRNA - Last Filed: 10/23/24 09:03> Neurological: alert and oriented <Andre Shepherd DO - Last Filed: 10/23/24 09:07> Last oral intake: >/= 8 hours <Ruby Lutz CRNA - Last Filed: 10/23/24 09:03> ASA classification: III <Ruby Lutz CRNA - Last Filed: 10/23/24 09:03> Emergent: no <Ruby Lutz CRNA - Last Filed: 10/23/24 09:03> Anesthetic plan: proceed <Ruby Lutz CRNA - Last Filed: 10/23/24 09:03> Anesthesia type and monitoring: general GIVS and standard monitoring <Ruby Lutz CRNA - Last Filed: 10/23/24 09:03> Results Review: All pre-operative results and documents have been reviewed as part of the pre-operative evaluation. <Ruby Lutz CRNA - Last Filed: 10/23/24 09:03> All pre-operative results and documents have been reviewed as part of the pre-operative evaluation. NARCISA on CPAP, BMI 33. <Andre Shepherd DO - Last Filed: 10/23/24 09:07> Informed Consent: The patient's anesthetic plan and its attendant risks and benefits were discussed with the patient/family/POA. Questions were solicited and answers provided to the satisfaction of the patient/family/POA. <Ruby Lutz CRNA - Last Filed: 10/23/24 09:03>
[2024-10-23 09:29] VITALS: BP 98/48; PULSE 62; RESP 20; O2SAT 99
[2024-10-23 09:39] VITALS: BP 113/64; PULSE 60; RESP 18; O2SAT 99
[2024-10-23 09:49] VITALS: BP 131/55; PULSE 55; RESP 18; O2SAT 100
== END 2024-10-23 10:01 | disposition home or self-care (01) ==
PROVIDERS: PCP Family Medicine; Referring Provider Family Medicine; Visit Provider Internal Medicine Gastroenterology
PROC: 0DJD8ZZ Inspection of Lower Intestinal Tract, Via Natural or Artificial Opening Endoscopic (ICD-10-PCS; CPT 45378; principal; 2024-10-23 09:30)
DX: Z12.11 Encounter for screening for malignant neoplasm of colon (principal); D12.0 Benign neoplasm of cecum; D12.5 Benign neoplasm of sigmoid colon; D12.8 Benign neoplasm of rectum; Q27.33 Arteriovenous malformation of digestive system vessel; Z87.891 Personal history of nicotine dependence
CPT/HCPCS: 45385; 88305; J2003; J2704; J7120

== ENCOUNTER 2025-05-23 09:26 | Outpatient (CLI) | payer BC, SELFPAY ==
--- NOTE | ~2025-05-23 | US_ITS ---
EXAMINATION:US venous doppler LE RT INDICATION:Right leg swelling and pain. Redness. TECHNIQUE: Multiple grayscale, color flow and Doppler images of the right lower extremity deep venous systems were obtained and reviewed. COMPARISON:No prior studies for comparison. FINDINGS: The common femoral, superficial femoral and popliteal veins demonstrate normal respiratory variation, augmentation and compressibility. Color flow is also seen within the posterior tibial, peroneal, greater saphenous and profunda veins. IMPRESSION: 1: No lower extremity deep venous thrombosis. Reviewed, dictated and finalized at location [facility]. [facility]
--- OUTSIDE RECORDS SUMMARY | 2025-05-23 09:59 | XMS_ITS | Clinical Summary ---
Author Organization [facility] Address [address] [address] Care Team Providers Care Ticket Speculator Name Role Phone Jaimie Crow MD Primary [...] Active Additional Information Patient not taking.Reported on 03/26/2025 tacrolimus (PROTOPIC) 0.1 % ointment as needed 2 Active clotrimazole 1 % creamIndication s:tinea pedis Apply topically 2 (two) times a day 30 g 2 2 Active Additional Information Patient taking differently:topicalAs needed, Indications: tinea pedis, Reported on 03/26/2025 Wegovy 0.25 mg/0.5 mL auto-injector every 7 days 4 Active leflunomide (ARAVA) 20 mg tablet TAKE 1 TABLET DAILY 30 tablet 5 Active Zepbound 5 mg/0.5 mL pen injector 5 Active ciclopirox (PENLAC) 8 % solution 5 Active predniSONE (DELTASONE) 10 mg tablet Take 3 tbs for 7 days, 2 tabs for 7 days, 1 tab x 7 days 42 tablet 5 Active Additional Information Patient not taking.Reported on 03/26/2025 EnbreL Mini 50 mg/mL (1 mL) cartridge INJECT 50 MG (1 ML) UNDER THE SKIN ONCE A WEEK 12 mL 5 Active Zepbound 10 mg/0.5 mL pen injector once a week 5 Active Active Problems Problem Noted Date Diagnosed Date Fatigue 07/24/2022 Assessment & Plan (07/24/2022 2:55 PM SNOWMAKER): Labs. Discussed importance of adequate sleep; good sleep hygiene in controlling weight as well as for overall health. BMI 40.0-44.9, adult 07/24/2022 Weight loss counseling, encounter for 05/01/2022 Assessment & Plan (07/24/2022 2:41 PM SNOWMAKER): Discussed that significant health benefits/risk reduction may [...] 05/01/2022 Assessment & Plan (07/24/2022 2:42 PM SNOWMAKER): Labs. Reviewed available prior labs in chart and Care Everywhere. Recommended low-carb, low-glycemic diet; choose whole grains and avoid more highly processed carbohydrates. Reviewed importance of adequate protein intake of 1-1.2 g/kg IBW/day. Class 3 severe obesity with body mass index (BMI) of 40.0 to 44.9 in adult 05/01/2022 Assessment & Plan (07/24/2022 2:43 PM SNOWMAKER): Obesity is unchanged.. Plan: General weight loss/lifestyle [...] persists then she should follow-up with her revenue enforcement collection agent to see if some of the issues [...] after fluconazole, patient should follow-up with her revenue enforcement collection agent to discuss whether the issues on her feet are related to eczema Tinea pedis of both feet 04/01/2022 Eczema 04/01/2022 Venous stasis dermatitis of right lower extremit y 04/01/2022 Rheumatoid arthritis 05/24/2018 Primary osteoarthritis of both hands 05/24/2018 Encounters Date Type Department Care Team Description 03/26/2025 10:15 AM CDT Lab [facility] at [address] [address] High risk medication use 03/26/2025 9:00 AM CDT Office Visit [facility] Medicine Rheumatology [address] [place] [address] [address] [place] [phone] Maria Ines Yanez MD High risk medication use (Primary Dx) 03/26/2025 Results Follow-Up [facility] Medicine Rheumatology [address] [place] [address] [address] [place] [phone] Maria Ines Yanez MD Lipid panel, Comprehensive metabolic panel, CBC with auto differential, Additional followed-up results: 2 from Last 3 Months Immunizations Immunization Administration Dates Next Due Influenza, [...] often do you have a drink containing alc ohol? 2-3 times a week 03/26/2025 Average Number of Drinks Not on file 025 Frequency of Binge Drinking Not on file 02/27 Comments Unknown Sex and Gender Information Value Date Recorded Sex Assigned at Not on file Legal Sex Female 2:57 AM SNOWMAKER Gender Identity Female 09/13/2018 9:38 AM CDT Sexual Orientation Not on file Last Filed Vital Signs Vital Sign Reading Time Taken Comments Blood Pressure 127/84 03/26/2025 8:48 AM CDT Pulse 70 03/26/2025 8:48 AM CDT Temperature 36.9 C (98.4 F) 03/26/2025 8:48 AM CDT Respiratory Rate 18 11/10/2022 9:45 AM CDT Oxygen Saturation 100% 03/26/2025 8:48 AM CDT Inhaled Oxygen Concentration - - Weight 74.4 kg (164 lb) 03/26/2025 8:48 AM CDT Height 157.5 cm (5' 2) 11/10/2024 9:21 AM CDT Body Mass Index 30 11/10/2024 9:21 AM CDT Plan of Treatment Health Maintenance Due Date Last Done Comments Cervical Cancer Screening 1962 Colon Cancer Screening-Colonoscopy 1962 Depression Screening 1962 Hepatitis B Screening 1980 Regular Well Visit/Exam 18-64 1980 Breast Cancer Screening-Mammogram 06/13/2014 06/13/2013 Zoster Vaccine (2 of 3) 10/23/2021 08/28/2021, 04/27 Influenza Vaccine (#1) 2025 , 04/02/2020, 06/07/2019, Additional history exists DTaP/Tdap/Td Vaccine (2 - Td or Tdap) 02/18/2026 02/19/2016 Pneumococcal vaccine <65 Aged Out 11/16/2018, 08/26 No longer eligible based on patient's age to complete this topic Hepatitis C Screening Completed 01/07/2023 , 09/13/2018, 06/13/2013 Procedures Procedure Name Priority Date/Time Associated Diagnosis Comments EGFR Routine 03/26/2025 9:41 AM CDT High risk medication use DIFFERENTIAL AUTO Routine 03/26/2025 9:4 1 AM CDT High risk medication use CBC WITH AUTO DIFFERENTIAL Routine 03/26/2025 9:41 AM CDT High risk medication use COMPREHENSIVE METABOLIC PANEL Routine 03/26/2025 9:41 AM CDT High risk medication use LIPID PANEL Routine 03/26/2025 9:41 AM CDT High risk medication use HEPATITIS C ANTIBODY Routine 01/07/2023 10:00 AM CDT High risk medication use SCREENING MAMMOGRAM W ARNAV Routine 06/13/2013 11:45 AM SNOWMAKER from Last 3 Months or Most Recently Relevant to Health Maintenance Results * eGFR (03/26/2025 9:41 AM CDT) eGFR >90 >=60 mL/min/1. 73 m2 Comment: Interpretive Data Reference Interval Normal >/= 90 mL/min/1.73m2 Mildly decreased* 60 - 89 mL/min/1.73m2 Mildly to moderately decreased 45 - 59 mL/min/1.73m2 Moderately to severely decreased 30 - 44 mL/min/1.73m2 Severely decreased 15 - 29 mL/min/1.73m2 Kidney Failure < 15 mL/min/1.73m2 *Relative to young adult level Estimated glomerular filtration rate is determined by the 2020 CKD-EPI equation recommended by the National Kidney Foundation (A Unifying Approach to GFR Estimation: Recommendations of the NKF-ASK Task Force on Reassessing the Inclusion of Race in Diagnosing Kidney Disease, JASN 202). The CKD-EPI equation should not be used for patients with unstable renal function and has not been validated in children and those over 70. Current interpretive data was last reviewed 2021. Testing performed by: [facility], [address] [place] [address] Blood 03/26/2025 9:41 AM CDT 03/26/2025 9:59 AM CDT us Maria Ines Yanez MD LAB BLOOD ORDERABLES Final Result [facility] [address] [place] [address] * Differential, auto (03/26/2025 9:41 AM CDT) Neutrophil abs 4.36 1.50 - 6.50 K/cumm Comment:Testing performed by : [facility], [facility] 2, [address] [place] [address] Imm gran abs 0.02 0.00 - 0.10 K/cumm FILOMENA DANGWAR Comment:Testing performed by : [facility], [facility] 2, [address] [place] [address] Lymphocyte abs 1.56 0.80 - 3.30 K/cumm FILOMENA KASPER Comment:Testing performed by : [facility], [facility] 2, [address] [place] [address] Monocyte abs 0.59 0.20 - 0.80 K/cumm FILOMENA KASPER Comment:Testing performed by : [facility] 2, [address] [place] [address] Eosinophil abs 0.12 0.00 - 0.50 K/cumm FILOMENA KASPER Comment:Testing performed by : [facility] 2, [address] [place] [address] Basophil abs 0.06 0.00 - 0.10 K/cumm CERNER BJW Comment:Testing performed by : [facility], [facility] 2, [address] [place] [address] Neutrophil pct 65.0 % CERNER BJWCH Comment: Interpretive Data Percent cell count reference ranges are not reported, since discordance with absolute values may lead to misinterpretation of CBC data. Current Interpretive Data was last revised on 2017. Testing performed by: [facility], [facility] 2, [address] [place] [address] Imm gran pct 0.3 % CERNER BJW Comment: Interpretive Data Percent cell count reference ranges are not reported, since discordance with absolute values may lead to misinterpretation of CBC data. Current Interpretive Data was last revised on 2017. Testing performed by: [facility], [facility] 2, [address] [place] [address] Lymphocyte pct 23.2 % [facility] Comment: Interpretive Data Percent cell count reference ranges are not reported, since discordance with absolute values may lead to misinterpretation of CBC data. Current Interpretive Data was last revised on 2017. Testing performed by: [facility], [facility] 2, [address] [place] [address] Monocyte pct 8.8 % CERNER BJW Comment: Interpretive Data Percent cell count reference ranges are not reported, since discordance with absolute values may lead to misinterpretation of CBC data. Current Interpretive Data was last revised on 2017. Testing performed by: [facility], [facility] 2, [address] [place] [address] Eosinophil pct 1.8 % CERNER BJW Comment: Interpretive Data Percent cell count reference ranges are not reported, since discordance with absolute values may lead to misinterpretation of CBC data. Current Interpretive Data was last revised on 2017. Testing performed by: [facility], [facility] 2, [address] [place] [address] Basophil pct 0.9 % CERNER BJW Comment: Interpretive Data Percent cell count reference ranges are not reported, since discordance with absolute values may lead to misinterpretation of CBC data. Current Interpretive Data was last revised on 2017. Testing performed by: [address] [place] [address] Blood 03/26/2025 9:41 AM CDT 03/26/2025 9:41 AM CDT Maria Ines Yanez MD LAB BLOOD ORDERABLES Final Result [facility] [address] [facility]. [place] [address] * CBC with auto differential (03/26/2025 9:41 AM CDT) WBC 6.71 3.80 - 9.90 K/cumm Comment:Testing performed by : [place] [address] [place] [address] Hgb 14.8 11.9 - 15.5 g/dL FILOMENA GARCIA Comment:Testing performed by : [place] [address] [place] [address] Hct 44.6 35.6 - 45.5 % FILOMENA KASPER Comment:Testing performed by : [place] [address] [place] [address] Plt 261 150 - 400 K/cumm FILOMENA KASPER Comment:Testing performed by : [place] [address], [address] [place] [address] MPV 10.9 9.1 - 12.3 fL FILOMENA KASPER Comment:Testing performed by : [address] [place] [address] RBC 5.02 3.90 - 5.20 M/cumm FLIOMENA GARCIACH Comment:Testing performed by : [place] [address] [place] [address] MCV 88.8 81.3 - 96.4 fL FILOMENA GARCIA Comment:Testing performed by : [facility], [facility] 2, [address] [place] [address] MCH 29.5 27.1 - 33.3 pg FILOMENA KASPER Comment:Testing performed by : [facility] 2, [address] [place] [address] MCHC 33.2 32.3 - 35.7 g/dL FILOMENA KASPER Comment:Testing performed by : [facility], [facility] 2, [address] [place] [address] RDW CV 12.5 11.1 - 14.9 % FILOMENA KASPER Comment:Testing performed by : [facility] 2, [address] [place] [address] RDW SD 41.0 35.7 - 48.1 fL FILOMENA KASPER Comment:Testing performed by : [facility], [facility] 2, [address] [place] [address] ANC Prelim 4.36 1.50 - 6.50 K/cumm FILOMENA GARCIA Comment: Interpretive Data The rapid ANC is a preliminary automated count and may vary from the final ANC (Neut Abs) reported in the WBC differential that follows. Current interpretive data was last revised 2024. Testing performed by: [facility] 2, [address] [place] [address] Blood 03/26/2025 9:41 AM CDT 03/26/2025 9:41 AM CDT us Maria Ines Yanez MD LAB BLOOD ORDERABLES Final Result [facility] [address] [facility] Department of Laboratories [place], [place] [id number] * (ABNORMAL) Lipid panel (03/26/2025 9:41 AM CDT) Cholesterol 213(H) 30 - 199 mg/dL Comment: Interpretive Data Ages < or = 19 years Acceptable: <170 mg/dL Borderline high: 170-199 mg/dL High: >or= 200 mg/dL Ages > or = 20 years Desirable: <200 mg/dL Borderline high: 200-239 mg/dL High: >or= 240 mg/dL Literature References: 1. Expert Panel on Integrated Guidelines for Cardiovascular Health and Risk Reduction in Children and Adolescents. Pediatrics 2011;128:S213 2. NCEP Expert Panel. Circulation 2004;110:227 Current Interpretive Data was last revised on 2018. Testing performed by: [facility], [address], [place] [address] Triglycerides 74 <=149 mg/dL CERNER BJWCH Comment: Interpretive Data Ages < or = 9 years Acceptable: <75 mg/dL Borderline high: 75-99 mg/dL High: >or= 100 mg/dL Ages 10 to 20 years Acceptable: <90 mg/dL Borderline high: 90-129 mg/dL High: >or= 130 mg/dL Ages > or = 20 years Desirable: <150 mg/dL Borderline high: 150-199 mg/dL High: 200-499 mg/dL Very high: >or= 499 mg/dL Literature References: 1. Expert Panel on Integrated Guidelines for Cardiovascular Health and Risk Reduction in Children and Adolescents. Pediatrics 2011;128:S213 2. NCEP Expert Panel. Circulation 2004;110:227 Current Interpretive Data was last revised on 2018. Testing performed by: [facility], [address], [place] [address] HDL 84 >=40 mg/dL CERNER BJW Comment: Interpretive Data Ages < or = 19 years Acceptable: >45 mg/dL Borderline low: 40-45 mg/dL Low: <40 mg/dL Ages > or = 20 years Desirable: >or= 60 mg/dL Low: <40 mg/dL Literature References: 1. Expert Panel on Integrated Guidelines for Cardiovascular Health and Risk Reduction in Children and Adolescents. Pediatrics 2011;128:S213 2. NCEP Expert Panel. Circulation 2004;110:227 Current Interpretive Data was last revised on 2018. Testing performed by: [facility], [address], [place] [address] LDL, calculated 116 <=129 mg/dL CERNER BJWCH Comment: Interpretive Data Ages < or = 19 years Acceptable: <110 mg/dL Borderline high: 110-129 mg/dL High: >or= 130 mg/dL Ages > or = 20 years Optimal: <100 mg/dL Near optimal: 100-129 mg/dL Borderline high: 130-159 mg/dL High: >160 mg/dL Calculated using the Chintan LDL-C estimating equation. This equation was implemented on 2024. Prior to this date LDL-C was estimated using the Friedewald equation. Literature References: 1. Expert Panel on Integrated Guidelines for Cardiovascular Health and Risk Reduction in Children and Adolescents. Pediatrics 2011;128:S213 2. NCEP Expert Panel. Circulation 2004;110:227 3. Chintan Sylvester et al. SYDNEY Cardiol. 2020 October 26;5(5):540-548. doi: 10.1001/jamacardio.2020.0013 Current Interpretive Data was last revised on 2024. Testing performed by: [facility], [address] [place] [address] Non-HDL Cholesterol 129 mg/dL FILMOENA KASPER Comment: Interpretive Data Ages < or = 19 years Acceptable: <120 mg/dL Borderline high: 120-144 mg/dL High: >145 mg/dL Ages > or = 20 years When triglycerides are >200 mg/dL, Non-HDL cholesterol is a secondary target of therapy with treatment goals that are 30 mg/dL greater than the LDL cholesterol target. Literature References: 1. Expert Panel on Integrated Guidelines for Cardiovascular Health and Risk Reduction in Children and Adolescents. Pediatrics 2011;128:S213 2. NCEP Expert Panel. Circulation 2004;110:227 Current Interpretive Data was last revised on 2018. Testing performed by: [facility], [address] [place] [address] Chol/HDL ratio 3 FILOMENA KASPER Comment:Testing performed by : [facility], [address] [place] [address] Blood 03/26/2025 9:41 AM CDT 03/26/2025 9:59 AM CDT us Maria Ines Prabir Sen MD LAB BLOOD ORDERABLES Final Result [facility] [address] [place] [address] * Comprehensive metabolic panel (03/26/2025 9:41 AM CDT) Sodium 137 135 - 145 mmol/L Comment:Testing performed by : [facility], [address], [place] [address] Potassium, pl 4.7 3.3 - 4.9 mmol/L CERNER BJWCH Comment:Testing performed by : [facility], [address], [place] [address] Chloride 102 97 - 110 mmol/L CERFELIX BJWCH Comment:Testing performed by : [facility], [address], [place] [address] CO2 25 22 - 32 mmol/L CERNER BJWCH Comment:Testing performed by : [facility], [address], [place] [address] Anion gap 11 2 - 15 mmol/L CERNER BJWCH Comment:Testing performed by : [facility], [address], [place] [address] BUN 13 6 - 25 mg/dL CERNER BJWCH Comment:Testing performed by : [facility], [address], [place] [address] Creatinine 0.70 0.60 - 1.10 mg/dL CERNER BJWCH Comment:Testing performed by : [facility], [address], [place] [address] Glucose 98 70 - 199 mg/dL CERNER BJWCH Comment: Interpretive Data Fasting glucose >/= 126 mg/dl is diagnostic for diabetes. Fasting is defined as no caloric intake for at least 8 hours. Fasting glucose between 100 mg/dl to 125 mg/dl is diagnostic of prediabetes. In a patient with classic symptoms of hyperglycemia or hyperglycemic crisis, a random glucose >/= 200 mg/dl is diagnostic for diabetes. In the absence of unequivocal hyperglycemia, results should be confirmed by repeat testing. The classification and Diagnosis of Diabetes Diabetes Care 2022; 46: S19-S40. Current interpretive data was last revised 2022. Testing performed by: [facility], [address], [place] [address] Calcium 9.5 8.5 - 10.3 mg/dL CERNER BJWCH Comment:Testing performed by : [facility], [address], [place] [address] Bilirubin, total 0.9 0.1 - 1.2 mg/dL CERNER BJWCH Comment:Testing performed by : [facility], [address], [place] [address] Protein, pl 7.1 6.5 - 8.5 g/dL CERNER BJWCH Comment:Testing performed by : [facility], [address], [place] [address] Albumin 4.3 3.5 - 5.0 g/dL CERNER BJWCH Comment:Testing performed by : [facility], [address], [place] [address] Alk phos 83 40 - 130 Units/L CERNER BJWCH Comment:Testing performed by : [facility], [address], [place] [address] ALT 15 7 - 45 Units/L CERNER BJWCH Comment:Testing performed by : [facility], [address], [place] [address] AST 16 10 - 45 Units/L CERNER BJWCH Comment:Testing performed by : [facility], [address], [place] [address] Blood 03/26/2025 9:41 AM CDT 03/26/2025 9:59 AM CDT Maria Ines Yanez MD LAB BLOOD ORDERABLES Final Result [facility] [address] [place] [address] * Hepatitis C antibody (01/07/2023 10:00 AM [...] 7:11 AM CDT Performed at: [address] [id number] Full Stack Engineer: Anuel Denton PhD, Phone: [phone] Maria Ines Yanez MD LAB MICROBIOLOGY - GENERAL ORDERABLES Final Result [facility] - 01 * Screening Mammogram W Arnav (06/13/2013 11:45 AM SNOWMAKER) Anatomical Region Laterality Modality Breast N/A Mammography 06/13/2013 11:4 5 AM SNOWMAKER Narrative 06/13/2013 12:43 PM SNOWMAKER ROSA NUNEZ M.D. FINAL REPORT ACC# Date Time Exam [id number] Jun 13, 2013 11:45:00 31756 Wrist 2 views Lt [id number] Jun 13, 2013 11:45:00 30762 Wrist 2 views Rt [id number] Jun 13, 2013 11:45:00 86628 Hand 2 views Rt [id number] Jun 13, 2013 11:45:00 47883 Hand 2 views Lt [id number] Jun 13, 2013 11:45:00 93383 Foot 2 views Lt [id number] Jun 13, 2013 11:45:00 69496 Foot 2 views Rt EXAMINATION: 1. Left [...] M.D. FINAL REPORT ACC# Date Time Exam [id number] Jun 13, 2013 11:45:00 15548 Wrist 2 views Lt [id number] Jun 13, 2013 11:45:00 02095 Wrist 2 views Rt [id number] Jun 13, 2013 11:45:00 38273 Hand 2 views Rt [id number] Jun 13, 2013 11:45:00 61791 Hand 2 views Lt [id number] Jun 13, 2013 11:45:00 62857 Foot 2 views Lt [id number] Jun 13, 2013 11:45:00 88662 Foot 2 views Rt EXAMINATION: 1. Left [...] Most Recently Relevant to Health Maintenance Insurance [employer] [facility] CHOICE OOS Care Teams Ticket Speculator Relationship Specialty Start Date End Date Jaimie Crow MD PCP - General Family Medicine 05/01/22
--- OUTSIDE RECORDS SUMMARY | 2025-05-23 09:59 | XMS_ITS | Encounter Summary ---
Author Organization [facility] Address [address] [place] [address] Phone Care Team Providers Care Binder Operator Name Role Phone Jaimie Crow MD Primary Care Provider + Encounter Details Date Type Department Care Team (Late st Contact Info) Description 03/26/2025 Results Follow-Up Health system Medicine Rheumatology [address] [facility] Office Building 2 [address] [place] [address] Maria Ines Yanez MD [facility] [address] [place] [address] Lipid panel, Comprehensive metabolic panel, CBC with auto differential, Additional followed-up results: 2 Social History Tobacco Use Types Packs/Day Years Used Date Smoking Tobacco: Former Smokeless Tobacco: Never Alcohol Use Standard Drinks/Week Comments Yes 4 [...] on file Legal 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 2-3 times a week 03/26/2025 8:48 AM Jose Juan Cooper CMA * BP Location Answer Date of Assessment Author Left arm 03/26/2025 8:48 AM Jose Juan Cooper CMA documented as of this encounter Plan of Treatment Not on file documented as of this encounter Visit Diagnoses Not on filedocumented in this encounter Care Teams Binder Operator Relationship Specialty Start Date End Date Jaimie Crow MD PCP - General Family Medicine 05/01/22 documented as of this encounter
== END 2025-05-23 09:27 | disposition home or self-care (01) ==
PROVIDERS: PCP Family Medicine; Visit Provider Family Medicine
DX: M79.89 Other specified soft tissue disorders (principal)
CPT/HCPCS: 93971